=== PATIENT | female | born 1955 | race Caucasian/White ===

== ENCOUNTER 2024-05-10 21:45 | Inpatient (IN) | payer MEDICARE ==
--- NOTE | 2024-05-10 22:00 | ED ---
General Adult HPI - General Chief complaint: Shortness of Breath Stated complaint: Difficulty Breathing Time Seen by Provider: 05/10/24 21:59 Source: patient, EMS Mode of arrival: EMS Limitations: no limitations - History of Present Illness Initial comments: This is a pleasant 68-year-old female history of COPD not on home oxygen presenting today for shortness of breath. Presenting for the [facility] where she is currently living due to rehab for low back pain. States her last 2 days has had frequent nonproductive cough. Throughout the day today was continuously short of breath and has been using her nebulizer and breathing and albuterol inhaler much more frequently w/o relief. Denies chest pain, fevers, chills, nausea,vomiting, diarrhea, melena, hematochezia, hemoptysis, LE swelling or additional complaints. No recent steroid or antibiotics use. Does not normally wear oxygen. - Related Data Home Medications Medication Instructions Recorded Confirmed Acetaminophen [Tylenol] 650 mg PO Q6H PRN 05/11/24 05/11/24 Albuterol Sulfate [Albuterol 2 puff PO RT-Q6H PRN 05/11/24 05/11/24 Sulfate Hfa] Calcium Carbonate [Tums] 1,000 mg PO Q6H PRN 05/11/24 05/11/24 Cholecalciferol (Vitamin D3) 50 mcg PO DAILY 05/11/24 05/11/24 [Vitamin D3 (50 Mcg = 2000 Iu)] Citalopram Hydrobromide [CeleXA] 40 mg PO DAILY 05/11/24 05/11/24 Ipratropium-Albuterol Nebulize 3 ml INHALATION RT-Q4H 05/11/24 05/11/24 [Duoneb 0.5 mg-3 mg/3 ml Soln] Sennosides/Docusate Sodium [Senna 2 tab PO HS 05/11/24 05/11/24 Plus 8.6-50 mg Tablet] lisinopriL [Zestril] 20 mg PO DAILY 05/11/24 05/11/24 polyethylene glycoL 3350 [Miralax] 17 gm PO DAILY 05/11/24 05/11/24 Previous Rx's Medication Instructions Recorded Apixaban [Eliquis] 5 mg PO BID tab 05/12/24 Azithromycin [Zithromax] 500 mg PO DAILY #3 tab 05/12/24 Diltiazem Oral [Cardizem*] 30 mg PO TID tab 05/12/24 Ipratropium-Albuterol Nebulize 3 ml INHALATION TID each 05/12/24 [Duoneb 0.5 mg-3 mg/3 ml Soln] oxyCODONE HCL [oxyCODONE HCL (IR)] 10 mg PO Q4H #18 tab 05/12/24 predniSONE 10 mg PO DAILY #30 tab 05/12/24 Allergies Allergy/AdvReac Type Severity Reaction Status Date / Time No Known Allergies Allergy Verified 05/11/24 08:05 Review of Systems ROS Statement: Those systems with pertinent positive or pertinent negative responses have been documented in the HPI. ROS Other: All systems not noted in ROS Statement are negative. Past Medical History Past Medical History: COPD, Hypertension History of Any Multi-Drug Resistant Organisms: None Reported Past Surgical History: Section, Hernia Repair Past Psychological History: Anxiety Smoking Status: Former smoker Past Alcohol Use History: Daily Past Drug Use History: None Reported General Exam - General Exam Comments Initial Comments: PE: CONSTITUTIONAL: No apparent distress, chronically ill-appearing SKIN: Warm, dry, no jaundice, hives or petechiae EYES: Pupils are equally round, extraocular movements intact without nystagmus, clear conjunctiva, non-icteric sclera HENT: Normocephalic, atraumatic, moist mucus membranes, oropharynx clear without exudates NECK: , Full range of motion, normal appearance PULMONARY: Wheezes throughout all lung gilman with decreased air movement in the periphery, no rales, rhonchi, stridor, no accessory muscle use, normal excursion CARDIOVASCULAR: Regular rate, rhythm, normal S1 and S2. No appreciated murmurs, rubs or gallops. Strong radial pulses with intact distal perfusion. No lower extremity edema GASTROINTESTINAL: Soft, active bowel sounds throughout, non-tender, non- distended, no palpable masses, no rebound or guarding. No hepatosplenomegaly MUSCULOSKELETAL: Extremities have no gross deformity, no edema, redness, or swelling. No calf swelling NEUROLOGIC:_a/o x 3, GCS 15, normal mentation and speech. Moves all extremities x 4 without motor or sensory deficit PSYCHIATRIC:_normal mood and affect, thought process is clear and linear Limitations: no limitations Course Vital Signs 05/10/24 05/10/24 05/10/24 21:52 23:45 23:59 Temperature 98.5 F Pulse Rate 102 H 112 H 111 H Respiratory 18 22 22 Rate Blood Pressure 114/71 O2 Sat by Pulse 94 L Oximetry Fraction of Inspired Oxygen (FIO2) 05/11/24 05/11/24 05/11/24 00:05 01:39 01:49 Temperature Pulse Rate 114 H Respiratory 22 Rate Blood Pressure O2 Sat by Pulse Oximetry Fraction of 100 40 Inspired Oxygen (FIO2) 05/11/24 05/11/24 05/11/24 02:06 02:07 02:09 Temperature Pulse Rate 150 H 110 H 105 H Respiratory 22 28 H Rate Blood Pressure 92/44 O2 Sat by Pulse 98 Oximetry Fraction of Inspired Oxygen (FIO2) 05/11/24 05/11/24 05/11/24 02:11 02:16 02:17 Temperature Pulse Rate 103 H 112 H 113 H Respiratory 20 30 H 29 H Rate Blood Pressure 134/85 O2 Sat by Pulse 100 Oximetry Fraction of Inspired Oxygen (FIO2) 05/11/24 05/11/24 05/11/24 02:41 02:43 02:50 Temperature Pulse Rate 112 H 112 H 117 H Respiratory 20 24 32 H Rate Blood Pressure 146/96 146/96 O2 Sat by Pulse 99 97 Oximetry Fraction of Inspired Oxygen (FIO2) 05/11/24 05/11/24 05/11/24 03:40 04:00 04:31 Temperature 98.2 F Pulse Rate 117 H Respiratory 24 Rate Blood Pressure 129/78 O2 Sat by Pulse 98 Oximetry Fraction of 40 Inspired Oxygen (FIO2) 05/11/24 05/11/24 05/11/24 04:57 06:45 07:34 Temperature Pulse Rate 101 H 90 96 Respiratory 22 18 Rate Blood Pressure 115/81 121/77 O2 Sat by Pulse 98 98 Oximetry Fraction of 40 Inspired Oxygen (FIO2) 05/11/24 05/11/24 05/11/24 07:44 07:52 08:01 Temperature Pulse Rate 97 95 93 Respiratory Rate Blood Pressure O2 Sat by Pulse Oximetry Fraction of Inspired Oxygen (FIO2) 05/11/24 05/11/24 05/11/24 11:00 11:07 11:17 Temperature Pulse Rate 92 90 92 Respiratory 20 Rate Blood Pressure 125/75 O2 Sat by Pulse 98 Oximetry Fraction of 40 Inspired Oxygen (FIO2) 05/11/24 05/11/24 05/11/24 15:25 15:35 17:00 Temperature Pulse Rate 95 97 99 Respiratory Rate Blood Pressure O2 Sat by Pulse Oximetry Fraction of Inspired Oxygen (FIO2) 05/11/24 05/11/24 05/11/24 17:08 17:26 19:43 Temperature 97.7 F Pulse Rate 100 91 94 Respiratory 16 20 Rate Blood Pressure 133/89 O2 Sat by Pulse 96 Oximetry Fraction of Inspired Oxygen (FIO2) 05/11/24 05/11/24 05/11/24 19:49 19:50 19:58 Temperature Pulse Rate 98 99 91 Respiratory 20 20 20 Rate Blood Pressure O2 Sat by Pulse Oximetry Fraction of Inspired Oxygen (FIO2) 05/11/24 05/12/24 05/12/24 20:47 00:01 00:07 Temperature 98.1 F Pulse Rate 95 98 99 Respiratory 20 18 18 Rate Blood Pressure 127/79 O2 Sat by Pulse 95 Oximetry Fraction of Inspired Oxygen (FIO2) 05/12/24 05/12/24 05/12/24 04:00 04:13 04:21 Temperature Pulse Rate 101 H 95 92 Respiratory 18 18 18 Rate Blood Pressure 129/85 O2 Sat by Pulse 92 L Oximetry Fraction of Inspired Oxygen (FIO2) 05/12/24 05/12/24 05/12/24 07:34 07:54 08:04 Temperature Pulse Rate 82 97 94 Respiratory 18 Rate Blood Pressure O2 Sat by Pulse 100 93 L Oximetry Fraction of Inspired Oxygen (FIO2) 05/12/24 05/12/24 05/12/24 08:05 08:14 09:12 Temperature 98 F Pulse Rate 94 92 97 Respiratory 17 Rate Blood Pressure 120/77 O2 Sat by Pulse 87 L Oximetry Fraction of Inspired Oxygen (FIO2) 05/12/24 05/12/24 05/12/24 11:37 11:50 11:51 Temperature 98.0 F Pulse Rate 102 H 96 Respiratory 20 22 Rate Blood Pressure 120/77 O2 Sat by Pulse 94 L Oximetry Fraction of Inspired Oxygen (FIO2) 05/12/24 05/12/24 05/12/24 15:41 15:53 15:57 Temperature Pulse Rate 101 H 98 105 H Respiratory 18 Rate Blood Pressure 135/91 O2 Sat by Pulse 94 L Oximetry Fraction of Inspired Oxygen (FIO2) 05/12/24 05/12/24 18:00 19:32 Temperature Pulse Rate 88 95 Respiratory 18 20 Rate Blood Pressure 132/92 148/87 O2 Sat by Pulse 96 95 Oximetry Fraction of Inspired Oxygen (FIO2) - Reevaluation(s) Reevaluation #1: I was called by around to bedside, patient now tachycardic with heart rate 180, appears to be in a flutter, increased work of breathing, scant wheezes with decreased breath sounds bilaterally. Patient will be put on BiPAP, another DuoNeb was ordered along with EKG. Respiratory called for 05/11/24 01:39 Reevaluation #2: After Cardizem bolus of 14 mg, Cardizem drip placed on BiPAP and breathing treatment patient's heart rate decreased down to 103 bpm. Patient does not have history of A-fib she is new onset A-fib so we will start heparin drip. 05/11/24 02:15 05/11/24 02:17 EKG Findings - EKG Comments: EKG Findings:: Sinus tachycardia, rate 101 bpm GA interval 137 ms QT/QTc 288/346 ms, normal axis, no ST elevations or depressions, no arrhythmia noSTEMI. Repeat EKG performed at 1:41 AM, shows a flutter with RVR, rate 183 bpm QT/QTc 237/333 ms, no ST elevations/depression, no STEMI. Repeat EKG performed at 3:28 AM, rate 112 bpm, sinus tachycardia, GA interval 131 ms QT/QTc 267/3 3 3 ms, normal axis, no ST elevations or depressions Medical Decision Making - Medical Decision Making Was pt. sent in by a medical professional or institution (, PA, TELEPHONE MESSENGER, urgent care, hospital, or fpc...) When possible be specific @[facility] Did you speak to anyone other than the patient for history (EMS, parent, family, police, friend...)? What history was obtained from this source @ -No Did you review nursing and triage notes (agree or disagree)? Why? @ -I reviewed nursing and triage notes Were old charts reviewed (outside hosp., previous admission, EMS record, old EKG, old radiological studies, urgent care reports/EKG's, fpc records)? Report findings @ -Medical records reviewed-no prior visits to our hospital or emergency department visible on medical record review Differential Diagnosis (chest pain, altered mental status, abdominal pain women, abdominal pain men, vaginal bleeding, weakness, fever, dyspnea, syncope, headache, dizziness, GI bleed, back pain, seizure, CVA, palpatations, mental h ealth, musculoskeletal)? @Differential Dyspnea: Coronary syndrome, arrhythmia, tamponade, asthma, COPD, pulmonary embolism, pneumonia, pneumothorax, pulmonary effusion, anaphylaxis, diabetic ketoacidosis, flailed chest, pulmonary contusion, diaphragmatic rupture, anemia, neuromuscular, this is not meant to be an all-inclusive list. EKG interpreted by me (3pts min.). @ -As above X-rays interpreted by me (1pt min.). @ -I personally reviewed chest x-ray, lungs do appear hyperinflated with flatte niki of the diaphragm consistent with COPD/emphysema, I see no gross consolidations, pleural effusions or cardiomegaly, radiologist reviewed chest x- ray noted no acute cardiopulmonary process, COPD changes and multilevel anterior wedge compression deformities of thoracic spine, probably chronic correlate with point tenderness. Patient states that she is currently at [facility] for back pain, I suspect secondary to this CT interpreted by me (1pt min.). @ -None done U/S interpreted by me (1pt. min.). @ -None done Did you discuss the management of the patient with other professionals (professionals i.e. , PA, TELEPHONE MESSENGER, lab, RT, psych nurse, social services analyst, field gauger, teacher, associate loan officer, case management specialist)? Give summary @ -No Was smoking cessation discussed for >3mins.? @ -No Was critical care preformed (if so, how long)? @Yes 45 minutes Were there social determinants of health that impacted care today? How? (Homelessness, low income, unemployed, alcoholism, drug addiction, transportation, low edu. Level, literacy, decrease access to med. care, halfway, rehab)? @ -No Was there de-escalation of care discussed even if they declined (Discuss DNR or withdrawal of care, Hospice)? @ -No What co-morbidities impacted this encounter? (DM, HTN, Smoking, COPD, CAD, Cancer, CVA, ARF, Chemo, Hep., AIDS, mental health diagnosis, sleep apnea, morbid obesity)? COPD Was patient admitted / discharged? Hospital course, mention meds given and route, prescriptions, significant lab abnormalities, going to OR and other pertinent info. @Admission-this is a pleasant 68-year-old female history of COPD, chronic back pain presenting today for shortness of breath and nonproductive cough x 2 days. Patient arrives on 2 L oxygen nasal cannula. During conversation with the patient she is removed from supplemental oxygen pulse ox went down to 87%. Patient placed back onto nasal cannula. Exam significant for scant wheezes in the bilateral lung gilman with decreased air movement in the periphery. She has no focal breath sounds, no lower extremity swelling, normal S1-S2 on cardiac exam. She is nontoxic-appearing and in no acute distress. I discussed with the patient performing nebulizer treatment, steroids, obtain chest x-ray EKG basic labs. Patient agreeable plan of care. On reassessment after [id number] nebulizer treatments, patient continued to have wheezes in the bilateral lung gilman with some improvement in air movement. Given lack of significant improvement of breath sounds plan for admission for COPD exacerbation.Otherwise labs reviewed, patient has no leukocytosis, troponin is undetectable, BNP 593, viral panel negative. Chest x-ray reflects COPD exacerbation without focal consolidations, cardiomegaly or pleural effusions. Case was discussed with ARPAN Sky, kindly excepted patient for admission. Shortly after admission while boarding in the emergency department I was called to bedside by RN that stated patient appeared to be in increased respiratory distress. On my assessment patient has heart rate of approximately 180 appears to be in atrial flutter, she has decreased air movement bilaterally with scant wheezes, tachypnea and is tripoding. Immediately ordered repeat EKG, repeat nebulizer treatments, BiPAP. Patient appears tearful and anxious, will order small dose of Ativan as well. EKG appeared to show atrial flutter versus A-fib RVR. Though I do suspect tachycardia secondary to work of breathing and could have a component of tachycardia secondary to DuoNebs, I feel patient would also benefit from Cardizem bolus. Blood pressure currently 88/72 with a MAP of 79. 14 mg Cardizem bolus and Cardizem drip ordered. Cardizem bolus was administered with improvement in heart rate down to the 110s, patient on BiPAP and appears much more comfortable. Due to new onset A-fib patient will be started on a heparin drip and maintain on a Cardizem drip as we ll. Patient's HR continued to improve, ~103 on reassessment. Appears comfortable on bipap. Admitted for COPD exacerbation. Undiagnosed new problem with uncertain prognosis? @ -No Drug Therapy requiring intensive monitoring for toxicity (Heparin, Nitro, Insulin, Cardizem)? @Heparin, Cardizem Were any procedures done? @ -No Diagnosis/symptom? acute hypoxic respiratory failure, COPD exacerbation, atrial fibrillation w/ RvR Acute, or Chronic, or Acute on Chronic? @ -acute Uncomplicated (without systemic symptoms) or Complicated (systemic symptoms)? @complicated Side effects of treatment? @ -No Exacerbation, Progression, or Severe Exacerbation? @ -No Poses a threat to life or bodily function? How? (Chest pain, [place], [place], pneumonia, PE, COPD, DKA, ARF, appy, cholecystitis, CVA, Diverticulitis, Homicidal, Suicidal, threat to staff... and all critical care pts) yes if left unaddressed could lead to respiratory arrest and - Lab Data Result diagrams: 05/10/24 23:27 05/10/24 23:27 Lab Results 05/10/24 05/10/24 05/10/24 Range/Units 23:27 23:27 23:27 WBC 7.2 (3.8-10.6) k/uL RBC 3.51 L (3.80-5.40) m/uL Hgb 11.9 (11.4-16.0) gm/dL Hct 38.5 (34.0-46.0) % MCV 109.7 H (80.0-100.0) fL MCH 33.8 (25.0-35.0) pg MCHC 30.8 L (31.0-37.0) g/dL RDW 13.3 (11.5-15.5) % Plt Count 563 H (150-450) k/uL MPV 7.2 Neutrophils % 75 % Lymphocytes % 12 % Monocytes % 6 % Eosinophils % 3 % Basophils % 1 % Neutrophils # 5.4 (1.3-7.7) k/uL Lymphocytes # 0.8 L (1.0-4.8) k/uL Monocytes # 0.4 (0-1.0) k/uL Eosinophils # 0.2 (0-0.7) k/uL Basophils # 0.1 (0-0.2) k/uL Manual Slide Review Performed Hypochromasia Moderate Macrocytosis Marked A PT 11.3 (10.0-12.5) sec INR 1.0 (<1.2) APTT 24.7 (22.0-30.0) sec D-Dimer 0.46 (<0.60) mg/L FEU Sodium 135 L (137-145) mmol/L Potassium 4.5 (3.5-5.1) mmol/L Chloride 100 (98-107) mmol/L Carbon Dioxide 24 (22-30) mmol/L Anion Gap 11 mmol/L BUN 12 (7-17) mg/dL Creatinine 0.42 L (0.52-1.04) mg/dL Est GFR (CKD-EPI)AfAm >90 (>60 ml/min/1.73 sqM) Est GFR (CKD-EPI)NonAf >90 (>60 ml/min/1.73 sqM) Glucose 101 H (74-99) mg/dL Calcium 9.2 (8.4-10.2) mg/dL Total Bilirubin 0.7 (0.2-1.3) mg/dL AST 18 (14-36) U/L ALT 19 (4-34) U/L Alkaline Phosphatase 108 (38-126) U/L Troponin I (0.000-0.034) ng/mL NT-Pro-B Natriuret Pep 593 pg/mL Total Protein 7.1 (6.3-8.2) g/dL Albumin 4.0 (3.5-5.0) g/dL 05/10/24 Range/Units 23:27 WBC (3.8-10.6) k/uL RBC (3.80-5.40) m/uL Hgb (11.4-16.0) gm/dL Hct (34.0-46.0) % MCV (80.0-100.0) fL MCH (25.0-35.0) pg MCHC (31.0-37.0) g/dL RDW (11.5-15.5) % Plt Count (150-450) k/uL MPV Neutrophils % % Lymphocytes % % Monocytes % % Eosinophils % % Basophils % % Neutrophils # (1.3-7.7) k/uL Lymphocytes # (1.0-4.8) k/uL Monocytes # (0-1.0) k/uL Eosinophils # (0-0.7) k/uL Basophils # (0-0.2) k/uL Manual Slide Review Hypochromasia Macrocytosis PT (10.0-12.5) sec INR (<1.2) APTT (22.0-30.0) sec D-Dimer (<0.60) mg/L FEU Sodium (137-145) mmol/L Potassium (3.5-5.1) mmol/L Chloride (98-107) mmol/L Carbon Dioxide (22-30) mmol/L Anion Gap mmol/L BUN (7-17) mg/dL Creatinine (0.52-1.04) mg/dL Est GFR (CKD-EPI)AfAm (>60 ml/min/1.73 sqM) Est GFR (CKD-EPI)NonAf (>60 ml/min/1.73 sqM) Glucose (74-99) mg/dL Calcium (8.4-10.2) mg/dL Total Bilirubin (0.2-1.3) mg/dL AST (14-36) U/L ALT (4-34) U/L Alkaline Phosphatase (38-126) U/L Troponin I <0.012 (0.000-0.034) ng/mL NT-Pro-B Natriuret Pep pg/mL Total Protein (6.3-8.2) g/dL Albumin (3.5-5.0) g/dL Disposition Clinical Impression: COPD exacerbation Disposition: ADMITTED IP TO THIS HOSP Condition: Stable
--- NOTE | 2024-05-10 23:03 | XR ---
EXAMINATION TYPE: XR chest 2V DATE OF EXAM: 05/10/2024 10:57 PM COMPARISON: None TECHNIQUE: XR chest 2V Frontal and lateral views of the chest. CLINICAL INDICATION:Female, 68 years old with history of COPD, ZAY; FINDINGS: Lungs/Pleura: There is flattening of the diaphragm with increased lucency of the lungs. No evidence o f pneumothorax, pleural effusion or focal consolidation. Senescent parenchymal change. Pulmonary vascularity: Unremarkable. Heart/mediastinum: Cardiomediastinal silhouette is prominent in size. Musculoskeletal: Multilevel anterior wedge compression deformities of the thoracic spine. IMPRESSION: 1. No acute cardiopulmonary disease process. 2. COPD changes. 3. Multilevel anterior wedge compression deformities of the thoracic spine. Probably chronic. Correla te with point tenderness. [facility], , 05/10/2024 11:01 PM
[2024-05-10 23:37] LABS: Basophils # (A) 0.1 k/uL (0-0.2); Basophils % (A) 1 %; Eosinophils # (A) 0.2 k/uL (0-0.7); Eosinophils % (A) 3 %; HCT 38.5 % (34.0-46.0); HGB 11.9 gm/dL (11.4-16.0); Hypochromasia Moderate; Lymphocytes # (A) 0.8 k/uL (1.0-4.8); Lymphocytes % (A) 12 %; MCH 33.8 pg (25.0-35.0); MCHC 30.8 g/dL (31.0-37.0); MCV 109.7 fL (80.0-100.0); Macrocytosis Marked; Mean Platelet Volume 7.2; Monocytes # (A) 0.4 k/uL (0-1.0); Monocytes % (A) 6 %; Neutrophils # (A) 5.4 k/uL (1.3-7.7); Neutrophils % (A) 75 %; Platelet Count 563 k/uL (150-450); RBC 3.51 m/uL (3.80-5.40); RDW 13.3 % (11.5-15.5); WBC 7.2 k/uL (3.8-10.6)
[2024-05-10 23:46] LABS: ALT 19 U/L (4-34); AST 18 U/L (14-36); African American GFR (CKD) >90 (>60 ml/min/1.73 sqM); Alkaline Phosphatase 108 U/L (38-126); Anion Gap 11 mmol/L; Blood Urea Nitrogen 12 mg/dL (7-17); Calcium 9.2 mg/dL (8.4-10.2); Carbon Dioxide 24 mmol/L (22-30); Chloride 100 mmol/L (98-107); Glucose 101 mg/dL (74-99); Non-African American GFR(CKD) >90 (>60 ml/min/1.73 sqM); Potassium 4.5 mmol/L (3.5-5.1); Sodium 135 mmol/L (137-145); Total Bilirubin 0.7 mg/dL (0.2-1.3); Total Protein 7.1 g/dL (6.3-8.2)
[2024-05-10] MEDS: IPRATROPIUM 0.5 MG/2.5 ML NEBU INHALATION STA ×2 (23:49)
[2024-05-10] MEDS: methylPREDNISolone SOD SUCCI 125 MG/2 ML VIAL IV STA (23:49)
[2024-05-10] MEDS: ALBUTEROL NEBULIZED 2.5 MG/3 ML INHALATION SCH (23:49)
[2024-05-10 23:51] LABS: Partial Thromboplastin Time 24.7 sec (22.0-30.0); Prothrombin Time 11.3 sec (10.0-12.5)
[2024-05-10 23:54] LABS: NT-Pro-B-Type Natriuretic Pept 593 pg/mL
[2024-05-11] MEDS ORDERED: ONDANSETRON 4 MG/2 ML VIAL IVP PRN (00:55)
[2024-05-11] MEDS ORDERED: NALOXONE 0.4 MG/ML 1 ML VIAL IVP PRN (00:55)
[2024-05-11] MEDS: LACTATED RINGERS 1,000 ML IV ONE (00:56)
[2024-05-11] MEDS: IPRATROPIUM 0.5 MG/2.5 ML NEBU INHALATION STA (01:52)
[2024-05-11] MEDS: ALBUTEROL NEBULIZED 2.5 MG/3 ML INHALATION STA (01:52)
[2024-05-11] MEDS: LORazepam 2 MG/ML INJ IV STA (01:55)
[2024-05-11] MEDS: SODIUM CHLORIDE 0.9% 1,000 ML IV ONE (01:56)
[2024-05-11] MEDS: DILTIAZEM 5 MG/ML 5 ML VIAL IVP STA (01:56)
[2024-05-11] MEDS ORDERED: DILTIAZEM 125 MG in SODIUM CHLORIDE 0.9% 100 ML IV SCH (02:00)
[2024-05-11] MEDS ORDERED: HEPARIN SODIUM 1,000 UN/ML (10ML VL) IV PRN (02:16)
[2024-05-11] MEDS: DILTIAZEM 125 MG in SODIUM CHLORIDE 0.9% 100 ML IV SCH (02:19)
[2024-05-11] MEDS: AZITHROMYCIN 500 MG in SODIUM CHLORIDE 0.9% 250 ML IVPB STA (02:22)
[2024-05-11 02:29] LABS: Influenza A Not Detected (Not Detectd); Influenza B Not Detected (Not Detectd); RSV Not Detected (Not Detectd)
[2024-05-11] MEDS: DILTIAZEM DRIP BOLUS FROM BAG 1 MG SOLN IV STA (02:30)
[2024-05-11] MEDS: HEPARIN SOD,PORK IN 0.45% NACL 25,000 UNIT in 0.45% NACL 1 250ML.BAG IV SCH (02:45)
[2024-05-11] MEDS: HEPARIN SODIUM 1,000 UN/ML (10ML VL) IV ONE (02:48)
--- NOTE | 2024-05-11 03:27 | P.CNPUL ---
History of Present Illness Consult date: 05/11/24 Requesting physician: Savanna Angelo Reason for consult: COPD Chief complaint: Shortness of breath History of present illness: Patient is 68-year-old female brought in by EMS from her [facility] with difficulty in breathing. On arrival, was found to be in some respiratory and placed on BiPAP. Pulmonary consult was placed for COPD exacerbation. While in the emergency department reportedly went into atrial fibrillation with rapid ventricular response, rate as high as 180s beats per minute. She was started on IV Cardizem. She was also systemically heparinized. Patient reportedly has history of COPD, home O2 dependence, former tobacco dependence, hypertension, wedge compression fracture of L2 with brace, anxiety/depression. Chest x-ray does not show any acute cardiopulmonary process. There is hyperinflation consistent with COPD. Viral screen negative for influenza, RSV, COVID. CBC: WBC count 7.2, hemoglobin 11.9, platelets 563. D-dimer 0.46. CMP unremarkable, electrolytes WDL, creatinine 0.42, glucose 101. D-dimer 0.46. Troponins less than 0.012. NT proBNP 593. Patient currently being evaluated the emergency department. She is in a state of respiratory distress, on BiPAP with settings 12/5 and FiO2 40%. SpO2 is reading 99%. Breathing in the mid 30s. Achieving tidal volumes around 300. She appears anxious, did receive a dose of Ativan 0.5 mg earlier. Her COPD is active she is actively wheezing. Per staff nurse, patient reportedly having hallucinations earlier. Interview is limited by respiratory distress. She does endorse a mostly nonproductive cough. Denies significant purulent sputum production. Denies fevers or chills. Denies chest pain, heart palpi tations, lightheadedness, lower extremity edema. Denies history of atrial fibrillation. Current rhythm appears to be sinus tachycardia on bedside monitor. Continues on Cardizem which is infusing at 5 mg/h, and heparin continues per protocol. Blood pressure normotensive. Review of Systems Constitutional: Denies chills (Speech), Denies fatigue, Denies fever, Denies poor appetite, Denies weight gain, Denies weight loss Ears, nose, mouth and throat: Denies headache, Denies nasal congestion, Denies nasal discharge, Denies post-nasal drip, Denies sinus pain, Denies sinus pressure, Denies sore throat Cardiovascular: Denies chest pain, Denies lightheadedness, Denies orthopnea, Denies palpitations, Denies paroxysmal nocturnal dyspnea, Denies syncope Respiratory: Reports congestion, Reports cough, Reports dyspnea, Reports home oxygen, Reports wheezing, Denies excessive sputum Gastrointestinal: Denies abdominal pain, Denies diarrhea, Denies hematemesis, Denies hematochezia, Denies melena, Denies nausea, Denies vomiting Genitourinary: Denies dysuria Musculoskeletal: Reports low back pain Integumentary: Denies rash, Denies unusual bruising Neurological: Denies seizures, Denies syncope Psychiatric: Denies anxiety, Denies depression Past Medical History Past Medical History: COPD, Hypertension History of Any Multi-Drug Resistant Organisms: None Reported Past Surgical History: Section, Hernia Repair Past Psychological History: Anxiety Smoking Status: Former smoker Past Alcohol Use History: Daily Past Drug Use History: None Reported Medications and Allergies Home Medications Medication Instructions Recorded Confirmed Type Acetaminophen [Tylenol] 650 mg PO Q6H PRN 05/11/24 05/11/24 History Albuterol Sulfate [Albuterol 2 puff PO RT-Q6H PRN 05/11/24 05/11/24 History Sulfate Hfa] Calcium Carbonate [Tums] 1,000 mg PO Q6H PRN 05/11/24 05/11/24 History Cholecalciferol (Vitamin D3) 50 mcg PO DAILY 05/11/24 05/11/24 History [Vitamin D3 (50 Mcg = 2000 Iu)] Citalopram Hydrobromide [CeleXA] 40 mg PO DAILY 05/11/24 05/11/24 History Docusate Sodium 100 mg PO BID 05/11/24 05/11/24 History Ipratropium-Albuterol Nebulize 3 ml INHALATION RT-Q4H 05/11/24 05/11/24 History [Duoneb 0.5 mg-3 mg/3 ml Soln] Meclizine HCl 50 mg PO Q8H PRN 05/11/24 05/11/24 History Meclizine [Antivert] 12.5 mg PO TID 05/11/24 05/11/24 History Sennosides/Docusate Sodium [Senna 2 tab PO HS 05/11/24 05/11/24 History Plus 8.6-50 mg Tablet] lisinopriL [Zestril] 20 mg PO DAILY 05/11/24 05/11/24 History oxyCODONE HCL [oxyCODONE HCL (IR)] 10 mg PO Q4H 05/11/24 05/11/24 History polyethylene glycoL 3350 [Miralax] 17 gm PO DAILY 05/11/24 05/11/24 History Allergies Allergy/AdvReac Type Severity Reaction Status Date / Time No Known Allergies Allergy Verified 05/11/24 08:05 Physical Exam Vitals: Vital Signs Temp Pulse Resp BP Pulse Ox FiO2 05/11/24 01:49 40 05/11/24 01:39 100 05/11/24 00:05 114 H 22 05/10/24 23:59 111 H 22 05/10/24 23:45 112 H 22 05/10/24 21:52 98.5 F 102 H 18 114/71 94 L Intake and Output 05/10/24 05/10/24 05/11/24 14:59 22:59 06:59 Other: Weight 55.338 kg GENERAL EXAM: Anxious, 68-year-old white female, in a state of moderate respiratory distress while on BiPAP. Lumbar brace on bedside table HEAD: Normocephalic and atraumatic EYES: Normal reaction of pupils, equal size. NOSE: Clear with pink turbinates. THROAT: No erythema or exudates. NECK: No masses, no JVD. CHEST: No chest wall deformity. LUNGS: Equal air entry with diffuse expiratory wheezing throughout. On BiPAP with settings 12/5 and FiO2 40%. Achieving tidal volumes around 300 to 350 mL. Tachypneic breathing in the mid 30s. Conversational dyspnea and accessory muscle use noted CVS: S1 and S2 normal with no audible murmur, regular rhythm. No extra heart sounds. Tachycardic. ABDOMEN: No hepatosplenomegaly, active bowel sounds, no guarding or rigidity. SPINE: No scoliosis or deformity SKIN: No rashes CENTRAL NERVOUS SYSTEM: No focal deficits, tone is normal in all 4 extremities. EXTREMITIES: There is no peripheral edema, clubbing, or cyanosis. Peripheral pulses are intact. Results - Laboratory Findings CBC and BMP: 05/10/24 23:27 05/10/24 23:27 PT/INR, D-dimer PT 11.3 sec (10.0-12.5) 05/10/24 23:27 INR 1.0 (<1.2) 05/10/24 23:27 D-Dimer 0.46 mg/L FEU (<0.60) 05/10/24 23:27 Abnormal lab findings: Abnormal Labs 05/10/24 05/10/24 23:27 23:27 RBC 3.51 L MCV 109.7 H MCHC 30.8 L Plt Count 563 H Lymphocytes # 0.8 L Macrocytosis Marked A Sodium 135 L Creatinine 0.42 L Glucose 101 H - Diagnostic Findings Chest x-ray: image reviewed Assessment and Plan Assessment: Acute COPD exacerbation with secondary shortness of breath and the patient is currently on BiPAP. Chest x-ray was reviewed and is consistent with COPD and chronic scarring changes. No airspace disease. Acute on chronic hypoxemic respiratory failure, currently on BiPAP, secondary to above paroxysmal atrial fibrillation with RVR, started on IV Cardizem and IV heparin in the ED, currently appears sinus tachycardia on bedside monitor Hypertension Lower back pain, with history of wedge compression fracture of L2 vertebra, with a lumbar brace Anxiety/depression Former tobacco smoker Plan: Continue on BiPAP with current settings, wean FiO2 as tolerated Chest x-ray reviewed, there is hyperinflation consistent with COPD. No acute cardiopulmonary process noted. Reportedly previously noted to be confused and having hallucinations. Obtain ABG Start combination of DuoNebs, budesonide and formoterol inhalations, and IV Solu-Medrol Viral 4 Plex unremarkable for influenza, RSV, COVID Received empiric doses of azithromycin and Rocephin in the ED As needed Xanax for anxiety Continues on IV Cardizem at 5 mg/h and IV heparin per protocol. Appears sinus on bedside monitor. Repeat EKG, consult cardiology We will also continue to follow I have personally seen and examined the patient, performed the documentation and the assessment and plan as written. Number of minutes spent on the visit:20 On 05/11/2024, the patient was seen in joint evaluation along with the nurse practitioner. This evaluation was done and 35 minutes. The patient is 68-year-old female who has history of COPD and she has not had any routine follow-up with pulmonology. She is a chronic former smoker. Upon arrival, the patient was in significant respiratory distress and based on that the patient was placed on a BiPAP with a pressure of 12 over 5 cm of water and FiO2 40%. She is still on BiPAP. At the same time, the patient was found to be in A-fib with RVR and significant tachycardia. She was started on a Cardizem drip and IV heparin. Overall, the patient is feeling better. She remains on DuoNeb. She remains on Perforomist and Pulmicort nebulizations twice a day and IV Solu- Medrol 40 mg every 8 hours. The patient is covered with empiric antibiotic coverage with Zithromax. She was taken off the Cardizem drip and the patient is currently on oral Cardizem at 30 mg p.o. 3 times daily. The patient remains on anticoagulation with Eliquis. Patient is also to be seen by cardiology. Chest x-ray was reviewed and is consistent with COPD and the patient has multiple anterior wedge compression deformities in the thoracic spine. She has ongoing chronic back pain related to compression fraction of the spine. She is taking oxycodone regarding pain milligrams every 4 hours on a as needed basis. Blood work was reviewed. The blood gas showed a pH of 7.37 with a pCO2 of 43 and pO2 of 84. Electrolytes are all within normal limits. The viral screen has been negative. proBNP level is 593 and the troponins are also negative. The patient will be admitted to the hospital accordingly and will follow. Time with Patient: Greater than 30
[2024-05-11] MEDS: ALPRAZolam 0.25 MG TAB PO PRN (03:39)
[2024-05-11 03:41] LABS: ABG Base Excess -0.9 mmol/L; ABG HCO3 25 mmol/L (21-25); ABG Oxygen Saturation 96.4 % (94-97); ABG PCO2 43 mmHg (35-45); ABG PH 7.37 (7.35-7.45); ABG PO2 84 mmHg (83-108); ABG TCO2 26 mmol/L (19-24); Allen Test Performed? Yes
[2024-05-11] MEDS: methylPREDNISolone SOD SUCCI 125 MG/2 ML VIAL IV SCH (05:30)
[2024-05-11] MEDS: IPRATROPIUM-ALBUTEROL 3 ML NEB INHALATION SCH ×2 (07:31→11:05)
[2024-05-11] MEDS: BUDESONIDE 1 MG/2 ML NEBU INHALATION SCH (07:31)
[2024-05-11] MEDS: FORMOTEROL FUMARATE 20 MCG/2 ML NEBU INHALATION SCH (07:52)
[2024-05-11] MEDS ORDERED: predniSONE 20 MG TAB PO SCH (09:00)
[2024-05-11] MEDS: AZITHROMYCIN 500 MG TAB PO SCH (09:09)
[2024-05-11] MEDS: APIXABAN 5 MG TAB PO SCH (09:10)
[2024-05-11] MEDS: guaiFENesin 600 MG TABLET.ER PO SCH (09:10)
[2024-05-11] MEDS: DILTIAZEM ORAL 30 MG TAB PO SCH (09:10)
[2024-05-11] MEDS: lisinopriL 20 MG TAB PO SCH (10:40)
[2024-05-11] MEDS: polyethylene glycoL 3350 17 GM POWD.PACK PO SCH (10:42)
--- NOTE | 2024-05-11 12:12 | P.CRDCN ---
History of Present Illness Consult date: 05/11/24 Reason for Consult (text): New A-fib History of present illness: This is a 68-year-old female with no prepatient presented to the hospital due to difficulty in breathing. Vious cardiac history and does not follow with a cell efficiency supervisor. She has a past medical history of COPD, hypertension, remote history of tobacco use and dependence.Patient states that she has also had a sore back and has been at subacute rehab for this. She is not on home oxygen and denies history of obstructive sleep apnea. She denies history of atrial fibrillation or irregular heartbeat. She does state that she was at [facility] few weeks ago and may have seen a cell efficiency supervisor at that time. Patient has a nonproductive cough. Patient denies having chest pain, no fever or chills. Blood pressure 125/75, heart rate 92, pulse ox 98% on BiPAP. Patient has been started on Cardizem drip currently at 5 mg/h and heparin drip. Patient is seen today in the emergency center waiting for a bed on the cardiac stepdown unit. -EKG: #1 sinus rhythm 101 bpm, #2 atrial fibrillation 183 bpm, #3 sinus rhythm 112 bpm. -Chest x-ray: No acute process. COPD. Multilevel anterior wedge compression deformities of the thoracic spine. -Laboratory studies: WBC 7.2, hemoglobin 1.9, platelet count 563, D-dimer 0.46. BUN 0.42. Troponin negative x 1. proBNP 593. Cepheid viral panel not detected. -Home cardiac medications: Lisinopril 20 mg daily. Review Of Systems: At the time of my exam: CONSTITUTIONAL: Denies fever or chills. HEENT: Denies blurred vision, vision changes, or eye pain. Denies hemoptysis CARDIOVASCULAR: Denies chest pain. Denies orthopnea. Denies PND. Denies palpitations RESPIRATORY: Reports cough, reports shortness of breath. GASTROINTESTINAL: Denies abdominal pain. Denies nausea or vomiting. HEMATOLOGIC: Denies bleeding disorders. GENITOURINARY: Denies any blood in urine. SKIN: Denies puritis. Denies rash. Physical examination: Gen: This is a frail cachectic appearing 68-year-old female currently on BiPAP VS: reviewed HEENT: Head is atraumatic, normocephalic. Pupils equal, round. Sclerae is anicteric. NECK: Supple. No JVD. LUNGS: Diminished breath sounds. No intercostal retractions. HEART: Regular rate and rhythm. No murmur. ABDOMEN: Soft No tenderness. EXTREMITIES: No pedal edema. No calf tenderness. NEUROLOGICAL: Patient is awake, alert and oriented x3. Assessment: New onset paroxysmal atrial fibrillation with RVR, currently in sinus rhythm COPD exacerbation Acute hypoxic respiratory failure on BiPAP Hypertension Back pain with compression deformity of L2 Remote history of tobacco use and dependence Plan: Resume patient's home cardiac medications Discontinue heparin drip and start patient on Eliquis 5 mg twice daily Discontinue Cardizem drip and start patient on oral Cardizem 30 mg 3 times daily Obtain 2-D echocardiogram and Doppler study to assess cardiac structure and function Further recommendations to follow based upon clinical course Thank you kindly for this consultation. Nurse practitioner note has been reviewed, I agree with documented findings and plan of care. Patient was seen and examined. Past Medical History Past Medical History: COPD, Hypertension History of Any Multi-Drug Resistant Organisms: None Reported Past Surgical History: Section, Hernia Repair Past Psychological History: Anxiety Smoking Status: Former smoker Past Alcohol Use History: Daily Past Drug Use History: None Reported Medications and Allergies Home Medications Medication Instructions Recorded Confirmed Type Acetaminophen [Tylenol] 650 mg PO Q6H PRN 05/11/24 05/11/24 History Albuterol Sulfate [Albuterol 2 puff PO RT-Q6H PRN 05/11/24 05/11/24 History Sulfate Hfa] Calcium Carbonate [Tums] 1,000 mg PO Q6H PRN 05/11/24 05/11/24 History Cholecalciferol (Vitamin D3) 50 mcg PO DAILY 05/11/24 05/11/24 History [Vitamin D3 (50 Mcg = 2000 Iu)] Citalopram Hydrobromide [CeleXA] 40 mg PO DAILY 05/11/24 05/11/24 History Docusate Sodium 100 mg PO BID 05/11/24 05/11/24 History Ipratropium-Albuterol Nebulize 3 ml INHALATION RT-Q4H 05/11/24 05/11/24 History [Duoneb 0.5 mg-3 mg/3 ml Soln] Meclizine HCl 50 mg PO Q8H PRN 05/11/24 05/11/24 History Meclizine [Antivert] 12.5 mg PO TID 05/11/24 05/11/24 History Sennosides/Docusate Sodium [Senna 2 tab PO HS 05/11/24 05/11/24 History Plus 8.6-50 mg Tablet] lisinopriL [Zestril] 20 mg PO DAILY 05/11/24 05/11/24 History oxyCODONE HCL [oxyCODONE HCL (IR)] 10 mg PO Q4H 05/11/24 05/11/24 History polyethylene glycoL 3350 [Miralax] 17 gm PO DAILY 05/11/24 05/11/24 History Allergies Allergy/AdvReac Type Severity Reaction Status Date / Time No Known Allergies Allergy Verified 05/11/24 08:05 Physical Exam Vitals: Vital Signs Temp Pulse Resp BP Pulse Ox FiO2 05/11/24 07:44 97 05/11/24 07:34 96 40 05/11/24 06:45 90 18 121/77 98 05/11/24 04:57 101 H 22 115/81 98 05/11/24 04:31 40 05/11/24 04:00 98.2 F 05/11/24 03:40 117 H 24 129/78 98 05/11/24 02:50 117 H 32 H 146/96 97 05/11/24 02:43 112 H 24 05/11/24 02:41 112 H 20 146/96 99 05/11/24 02:17 113 H 29 H 05/11/24 02:16 112 H 30 H 05/11/24 02:11 103 H 20 134/85 100 05/11/24 02:09 105 H 28 H 05/11/24 02:07 110 H 05/11/24 02:06 150 H 22 92/44 98 05/11/24 01:49 40 05/11/24 01:39 100 05/11/24 00:05 114 H 22 05/10/24 23:59 111 H 22 05/10/24 23:45 112 H 22 05/10/24 21:52 98.5 F 102 H 18 114/71 94 L Intake and Output 05/10/24 05/11/24 05/11/24 22:59 06:59 14:59 Other: Weight 55.338 kg Results 05/10/24 23:27 05/10/24 23:27 Cardiac Enzymes 05/10/24 05/10/24 Range/Units 23:27 23:27 AST 18 (14-36) U/L Troponin I <0.012 (0.000-0.034) ng/mL Coagulation 05/10/24 Range/Units 23:27 PT 11.3 (10.0-12.5) sec APTT 24.7 (22.0-30.0) sec CBC 05/10/24 Range/Units 23:27 WBC 7.2 (3.8-10.6) k/uL RBC 3.51 L (3.80-5.40) m/uL Hgb 11.9 (11.4-16.0) gm/dL Hct 38.5 (34.0-46.0) % Plt Count 563 H (150-450) k/uL Comprehensive Metabolic Panel 05/10/24 Range/Units 23:27 Sodium 135 L (137-145) mmol/L Potassium 4.5 (3.5-5.1) mmol/L Chloride 100 (98-107) mmol/L Carbon Dioxide 24 (22-30) mmol/L BUN 12 (7-17) mg/dL Creatinine 0.42 L (0.52-1.04) mg/dL Glucose 101 H (74-99) mg/dL Calcium 9.2 (8.4-10.2) mg/dL AST 18 (14-36) U/L ALT 19 (4-34) U/L Alkaline Phosphatase 108 (38-126) U/L Total Protein 7.1 (6.3-8.2) g/dL Albumin 4.0 (3.5-5.0) g/dL Current Medications Generic Name Dose Route Start Last Admin Trade Name Freq PRN Reason Stop Dose Admin Acetaminophen 650 mg 05/11/24 00:55 Acetaminophen Tab 325 Mg Tab PO Q6HR PRN Mild Pain or Fever > 100.5 Albuterol/Ipratropium 3 ml 05/11/24 08:00 05/11/24 07:31 Ipratropium-Albuterol 3 Ml Neb INHALATION 3 ml RT-QID MICHELLE Administration Albuterol/Ipratropium 3 ml 05/11/24 00:55 Ipratropium-Albuterol 3 Ml Neb INHALATION RT-Q2H PRN Shortness Of Breath Or Wheezing Alprazolam 0.25 mg 05/11/24 03:14 05/11/24 03:39 Alprazolam 0.25 Mg Tab PO 0.25 mg BID PRN Administration Anxiety Azithromycin 500 mg 05/11/24 09:00 Azithromycin 500 Mg Tab PO 05/13/24 09:01 DAILY [facility] Protocol Budesonide 1 mg 05/11/24 08:00 05/11/24 07:31 Budesonide 1 Mg/2 Ml Nebu INHALATION 1 mg RT-BID MICHELLE Administration Formoterol Fumarate 20 mcg 05/11/24 08:00 Formoterol Fumarate 20 Mcg/2 Ml Nebu INHALATION RT-BID MICHELLE Guaifenesin 600 mg 05/11/24 09:00 Guaifenesin 600 Mg Tablet.Er PO Q12HR [facility] Heparin Sodium (Porcine) 0 unit 05/11/24 02:16 Heparin Sodium 1,000 Un/Ml (10ml Vl) IV PER PROTOCOL PRN Low PTT Protocol Heparin Sodium/Sodium Chloride 250 mls @ 6.641 mls/hr 05/11/24 02:30 05/11/24 02:45 25,000 unit/ Sodium Chloride IV 12 units/kg/hr .Q24H MICHELLE 6.641 mls/hr Administration Protocol 12 UNITS/KG/HR Diltiazem HCl 125 mg/ Sodium 125 mls @ 5 mls/hr 05/11/24 02:30 05/11/24 02:19 Chloride IV 5 mg/hr .Q24H MICHELLE 5 mls/hr Administration Protocol 5 MG/HR Methylprednisolone Sodium Succinate 60 mg 05/11/24 06:00 05/11/24 05:30 Methylprednisolone Sod Succi 125 Mg/2 Ml Vial IV 60 mg Q6HR MICHELLE Administration Naloxone HCl 0.2 mg 05/11/24 00:55 Naloxone 0.4 Mg/Ml 1 Ml Vial IVP Q2M PRN Opioid Reversal Ondansetron HCl 4 mg 05/11/24 00:55 Ondansetron 4 Mg/2 Ml Vial IVP Q6HR PRN Nausea And Vomiting Intake and Output 05/10/24 05/11/24 05/11/24 22:59 06:59 14:59 Other: Weight 55.338 kg 05/10/24 23:27 05/10/24 23:27
[2024-05-11] MEDS: IPRATROPIUM-ALBUTEROL 3 ML NEB INHALATION PRN (16:57)
--- NOTE | 2024-05-11 20:41 | P.HPIM ---
History of Present Illness H&P Date: 05/11/24 Chief Complaint: Short of breath Pleasant 68-year-old patient, follows with Dr. Joya Cramer. Patient [facility] had [facility]. For that she was admitted to [facility] for rehab. While at [facility] she was seen by orthopedic surg michael for her back pain. She was told no surgical intervention at this point. And medical management and follow-up outpatient. As the back was bothering her more she decided to come to the ER. Also short of breath and more wheezing. Found to be in atrial fibrillation with rapid ventricular rate. Put on a Cardizem drip. Patient did smoke in the past. By this morning patient reverted to sinus rhythm. Review of systems: GEN.: Tired EYES: None HEENT: None NECK: None RESPIRATORY: Short of breath wheezing CARDIOVASCULAR: None GASTROINTESTINAL: None GENITOURINARY: None MUSCULOSKELETAL: [Chronic pain including flareup of lower back pain LYMPHATICS: None HEMATOLOGICAL: None PSYCHIATRY: None NEUROLOGICAL: Does use a walker Social history: Lives alone. Does use a walker. Smoked less than a pack a day for close to 25 years stopped about 25 years ago. Currently at rehab at [facility] Physical examination: VITAL SIGNS: 98.5, 112, 22, 114 x 71, 94% 2 L upon presentation GENERAL: BMI 20.3, reclining bed short of breath. EYES: Pupils equal. Conjunctiva karen l. HEENT: External appearance of nose and ears normal, oral cavity grossly normal. NECK: JVD not raised; masses not palpable. HEART: First and second heart sounds are normal; no edema. LUNGS: Respiratory rate increased, diminished breath sound prolonged expiration wheezing. ABDOMEN: Soft, nontender, liver spleen not palpable, no masses palpable. PSYCH: [Alert and oriented x3; mood and affect anxious l. MUSCULOSKELETAL:No Clubbing/cyanosis;muscles-grossly intact NEUROLOGICAL: Cranial nerves grossly intact; no facial asymmetry, power and sensation grossly intact. LYMPHATICS: No lymph nodes palpable in the axilla and neck INVESTIGATIONS, reviewed in the clinical context: May 10, 2024: White count 7.2 hemoglobin 11.9 platelets 563 sodium 135 potassium 4.5 BUN 12 creatinine 0.42 proBNP 593 Troponin I is less than 0.012 Influenza type A, type B, RSV, SARS-CoV-2: Not detected EKG tracing personally reviewed by me-normal sinus rhythm. Nonspecific ST-T wave changes Chest x-ray film personally reviewed by me-hyperinflated. Possible chronic changes. Assessment plan: -Acute severe COPD exacerbation in a previous smoker DuoNeb Q4. IV Solu-Medrol 60 mg every 6. Nebulized Pulmicort. Nebulized Perforomist. -Paroxysmal atrial fibrillation rapid ventricular rate. Now in sinus rhythm. Initially put on IV Cardizem drip. Now p.o. Cardizem added IV heparin. Switch over to oral Eliquis -Primary osteoarthritis Pain medication as needed -Multiple anterior wedge compression deformities of thoracic spine. This has been worked up recently by orthopedic physician at [facility]. Patient is due to follow-up outpatient. Patient has been told for not very surgical intervention. K-pad ordered. Home pain medication resumed -Chronic gait dysfunction does use a walker at baseline -Essential hypertension Zestril -Anxiety Celexa -Full code Care was discussed with the patient. Cardiology following. Past Medical History Past Medical History: COPD, Hypertension History of Any Multi-Drug Resistant Organisms: None Reported Past Surgical History: Section, Hernia Repair Past Psychological History: Anxiety Smoking Status: Former smoker Past Alcohol Use History: Daily Past Drug Use History: None Reported Medications and Allergies Home Medications Medication Instructions Recorded Confirmed Type Acetaminophen [Tylenol] 650 mg PO Q6H PRN 05/11/24 05/11/24 History Albuterol Sulfate [Albuterol 2 puff PO RT-Q6H PRN 05/11/24 05/11/24 History Sulfate Hfa] Calcium Carbonate [Tums] 1,000 mg PO Q6H PRN 05/11/24 05/11/24 History Cholecalciferol (Vitamin D3) 50 mcg PO DAILY 05/11/24 05/11/24 History [Vitamin D3 (50 Mcg = 2000 Iu)] Citalopram Hydrobromide [CeleXA] 40 mg PO DAILY 05/11/24 05/11/24 History Docusate Sodium 100 mg PO BID 05/11/24 05/11/24 History Ipratropium-Albuterol Nebulize 3 ml INHALATION RT-Q4H 05/11/24 05/11/24 History [Duoneb 0.5 mg-3 mg/3 ml Soln] Meclizine HCl 50 mg PO Q8H PRN 05/11/24 05/11/24 History Meclizine [Antivert] 12.5 mg PO TID 05/11/24 05/11/24 History Sennosides/Docusate Sodium [Senna 2 tab PO HS 05/11/24 05/11/24 History Plus 8.6-50 mg Tablet] lisinopriL [Zestril] 20 mg PO DAILY 05/11/24 05/11/24 History oxyCODONE HCL [oxyCODONE HCL (IR)] 10 mg PO Q4H 05/11/24 05/11/24 History polyethylene glycoL 3350 [Miralax] 17 gm PO DAILY 05/11/24 05/11/24 History Allergies Allergy/AdvReac Type Severity Reaction Status Date / Time No Known Allergies Allergy Verified 05/11/24 08:05 Physical Exam Vitals: Vital Signs Temp Pulse Resp BP Pulse Ox FiO2 05/11/24 08:01 93 05/11/24 07:52 95 05/11/24 07:44 97 05/11/24 07:34 96 40 05/11/24 06:45 90 18 121/77 98 05/11/24 04:57 101 H 22 115/81 98 05/11/24 04:31 40 05/11/24 04:00 98.2 F 05/11/24 03:40 117 H 24 129/78 98 05/11/24 02:50 117 H 32 H 146/96 97 05/11/24 02:43 112 H 24 05/11/24 02:41 112 H 20 146/96 99 05/11/24 02:17 113 H 29 H 05/11/24 02:16 112 H 30 H 05/11/24 02:11 103 H 20 134/85 100 05/11/24 02:09 105 H 28 H 05/11/24 02:07 110 H 05/11/24 02:06 150 H 22 92/44 98 05/11/24 01:49 40 05/11/24 01:39 100 05/11/24 00:05 114 H 22 05/10/24 23:59 111 H 22 05/10/24 23:45 112 H 22 05/10/24 21:52 98.5 F 102 H 18 114/71 94 L Intake and Output 05/10/24 05/11/24 05/11/24 22:59 06:59 14:59 Other: Weight 55.338 kg Results CBC & Chem 7: 05/10/24 23:27 05/10/24 23:27 Labs: Abnormal Lab Results - Last 24 Hours (Table) 05/10/24 05/10/24 05/11/24 Range/Units 23:27 23:27 03:37 RBC 3.51 L (3.80-5.40) m/uL MCV 109.7 H (80.0-100.0) fL MCHC 30.8 L (31.0-37.0) g/dL Plt Count 563 H (150-450) k/uL Lymphocytes # 0.8 L (1.0-4.8) k/uL Macrocytosis Marked A ABG Total CO2 26 H (19-24) mmol/L Hemoglobin 11.3 L (11.4-16.0) gm/dL Sodium 135 L (137-145) mmol/L Creatinine 0.42 L (0.52-1.04) mg/dL Glucose 101 H (74-99) mg/dL
[2024-05-11] MEDS: SENNOSIDES-DOCUSATE SODIUM 1 EACH TAB PO SCH (20:50)
[2024-05-12] MEDS: methylPREDNISolone SOD SUCCI 40 MG/ML 1 ML VIAL IV SCH (00:41)
[2024-05-12] MEDS: CHOLECALCIFEROL 25 MCG (1000 IU) TABLET PO SCH (09:26)
--- NOTE | 2024-05-12 09:32 | P.PN ---
Subjective Progress Note Date: 05/12/24 Reason for Consult (text): New A-fib History of present illness: This is a 68-year-old female with no prepatient presented to the hospital due to difficulty in breathing. Vious cardiac history and does not follow with a screw machine set up operator tool. She has a past medical history of COPD, hypertension, remote history of tobacco use and dependence.Patient states that she has also had a sore back and has been at subacute rehab for this. She is not on home oxygen an d denies history of obstructive sleep apnea. She denies history of atrial fibrillation or irregular heartbeat. She does state that she was at [facility] few weeks ago and may have seen a screw machine set up operator tool at that time. Patient has a nonproductive cough. Patient denies having chest pain, no fever or chills. Blood pressure 125/75, heart rate 92, pulse ox 98% on BiPAP. Patient has been started on Cardizem drip currently at 5 mg/h and heparin drip. Patient is seen today in the emergency center waiting for a bed on the cardiac stepdown unit. -EKG: #1 sinus rhythm 101 bpm, #2 atrial fibrillation 183 bpm, #3 sinus rhythm 112 bpm. -Chest x-ray: No acute process. COPD. Multilevel anterior wedge compression deformities of the thoracic spine. -Laboratory studies: WBC 7.2, hemoglobin 1.9, platelet count 563, D-dimer 0.46. BUN 0.42. Troponin negative x 1. proBNP 593. Cepheid viral panel not detected. -Home cardiac medications: Lisinopril 20 mg daily. 05/12 Patient is seen and examined in the emergency center waiting for a bed on the cardiac stepdown unit. Patient remains in sinus rhythm. Yesterday, patient was started on oral Cardizem, Eliquis. Blood pressure 129/85, heart rate 95, pulse ox 92% on 3 L nasal cannula. Patient does not have home oxygen. Echocardiogram ordered. Physical examination: Gen: This is a frail cachectic appearing 68-year-old female in no acute distress VS: reviewed HEENT: Head is atraumatic, normocephalic. Pupils equal, round. Sclerae is anict zahira. NECK: Supple. No JVD. LUNGS: Diminished breath sounds. No intercostal retractions. HEART: Regular rate and rhythm. No murmur. ABDOMEN: Soft No tenderness. EXTREMITIES: No pedal edema. No calf tenderness. NEUROLOGICAL: Patient is awake, alert and oriented x3. Assessment: New onset paroxysmal atrial fibrillation with RVR, currently in sinus rhythm COPD exacerbation Acute hypoxic respiratory failure on BiPAP initially Hypertension Back pain with compression deformity of L2 Remote history of tobacco use and dependence Plan: Continue patient's home cardiac medications Continue patient on Eliquis 5 mg twice daily and oral Cardizem 30 mg 3 times daily Obtain 2-D echocardiogram and Doppler study to assess cardiac structure and function If echocardiogram is unremarkable, patient is cleared for discharge and may follow-up in the office with Dr. Sarai Jorge in 3 weeks. Nurse practitioner note has been reviewed, I agree with documented findings and plan of care. Patient was seen and examined. Objective - Vital Signs Vital signs: Vital Signs Temp 98.1 F 05/11/24 20:47 Pulse 92 05/12/24 04:21 Resp 18 05/12/24 04:21 BP 129/85 05/12/24 04:00 Pulse Ox 92 L 05/12/24 04:00 FiO2 40 05/11/24 11:07 Intake & Output 05/11/24 05/12/24 05/12/24 18:59 06:59 18:59 Weight 55.338 kg - Labs CBC & Chem 7: 05/10/24 23:27 05/10/24 23:27
--- NOTE | 2024-05-12 17:37 | P.PN ---
Subjective Progress Note Date: 05/12/24 Patient is 68-year-old female brought in by EMS from her ECF with difficulty in breathing. On arrival, was found to be in some respiratory and placed on BiPAP. Pulmonary consult was placed for COPD exacerbation. While in the emergency department reportedly went into atrial fibrillation with rapid ventricular response, rate as high as 180s beats per minute. She was started on IV Cardizem. She was also systemically heparinized. Patient reportedly has history of COPD, home O2 dependence, former tobacco dependence, hypertension, wedge compression fracture of L2 with brace, anxiety/depression. Chest x-ray does not show any acute cardiopulmonary process. There is hyperinflation consistent with COPD. Viral screen negative for influenza, RSV, COVID. CBC: WBC count 7.2, hemoglobin 11.9, platelets 563. D-dimer 0.46. CMP unremarkable, electrolytes WDL, creatinine 0.42, glucose 101. D-dimer 0.46. Troponins less than 0.012. NT proBNP 593. Patient currently being evaluated the emergency department. She is in a state of respiratory distress, on BiPAP with settings 12/5 and FiO2 40%. SpO2 is reading 99%. Breathing in the mid 30s. Achieving tidal volumes around 300. She appears anxious, did receive a dose of Ativan 0.5 mg earlier. Her COPD is active she is actively wheezing. Per staff nurse, patient reportedly having hallucinations earlier. Interview is limited by respiratory distress. She does endorse a mostly nonproductive cough. Denies significant purulent sputum production. Denies fevers or chills. Denies chest pain, heart palpitations, lightheadedness, lower extremity edema. Denies history of atrial fibrillation. Current rhythm appears to be sinus tachycardia on bedside monitor. Continues on Cardizem which is infusing at 5 mg/h, and heparin continues per protocol. Blood pressure normotensive. On today's evaluation of 05/12/2024, the patient is being seen for a follow-up. The patient was hospitalized for an acute COPD exacerbation. The patient is feeling better and the patient is currently off the BiPAP and she was placed on 3 L of oxygen by nasal cannula with a pulse ox of 94%. Less bronchospastic and wheezy compared to yesterday. No new labs from today. Viral screen has been negative. Remains on DuoNeb updrafts. Remains on IV Solu-Medrol 40 mg every 8 hours. Remains on Perforomist and Pulmicort updrafts twice a day. Still having some ongoing back pain due to compression fraction of the spine. Cardiac rhythm is back into sinus and the patient remains on anticoagulation with Eliquis 5 mg p.o. twice a day. Patient is also on Cardizem 30 mg p.o. 3 times daily. Objective - Vital Signs Vital signs: Vital Signs Temp 98.0 F 05/12/24 11:37 Pulse 96 05/12/24 11:51 Resp 22 05/12/24 11:50 BP 120/77 05/12/24 11:37 Pulse Ox 94 L 05/12/24 11:37 FiO2 40 05/11/24 11:07 Intake & Output 05/11/24 05/12/24 05/12/24 18:59 06:59 18:59 Weight 55.338 kg - Exam GENERAL EXAM: Anxious, 68-year-old white female, stable without any significant shortness of breath on 3 L of oxygen nasal cannula. Lumbar brace on bedside table HEAD: Normocephalic and atraumatic EYES: Normal reaction of pupils, equal size. NOSE: Clear with pink turbinates. THROAT: No erythema or exudates. NECK: No masses, no JVD. CHEST: No chest wall deformity. LUNGS: Equal air entry with diffuse expiratory wheezing throughout. CVS: S1 and S2 normal with no audible murmur, regular rhythm. No extra heart sounds. ABDOMEN: No hepatosplenomegaly, active bowel sounds, no guarding or rigidity. SPINE: No scoliosis or deformity SKIN: No rashes CENTRAL NERVOUS SYSTEM: No focal deficits, tone is normal in all 4 extremities. EXTREMITIES: There is no peripheral edema, clubbing, or cyanosis. Peripheral pulses are intact. - Labs CBC & Chem 7: 05/10/24 23:27 05/10/24 23:27 Assessment and Plan Assessment: Acute COPD exacerbation with secondary shortness of breath and the patient is currently on BiPAP. Chest x-ray was reviewed and is consistent with COPD and chronic scarring changes. No airspace disease. The patient is currently off the BiPAP Acute on chronic hypoxemic respiratory failure, currently off the BiPAP on 3 L of oxygen nasal cannula paroxysmal atrial fibrillation with RVR, back into sinus rhythm and the patient is currently on oral Cardizem and anticoagulation with Eliquis Hypertension Lower back pain, with history of wedge compression fracture of L2 vertebra, with a lumbar brace Anxiety/depression Former tobacco smoker Plan: Stable on 2 L of O2 nasal cannula Chest x-ray reviewed, there is hyperinflation consistent with COPD. No acute cardiopulmonary process noted. Reportedly previously noted to be confused and having hallucinations. Obtain ABG Continue combination of DuoNebs, budesonide and formoterol inhalations, and IV Solu-Medrol Viral 4 Plex unremarkable for influenza, RSV, COVID Received empiric doses of azithromycin and Rocephin in the ED As needed Xanax for anxiety Oral Cardizem Anticoagulation with Eliquis Will likely need home O2 We will also continue to follow Time with Patient: Greater than 30
--- NOTE | 2024-05-12 17:39 | P.PN ---
Progress Note - Text Progress Note Date: 05/12/24 Chief Complaint: Short of breath Pleasant 68-year-old patient, follows with Dr. Joya Cramer. Patient recently had [facility] [place]. For that she was admitted to [facility] for rehab. While at [facility] she was seen by orthopedic surgeon for her back pain. She was told no surgical intervention at this point. And medical management and follow-up outpatient. As the back was bothering her more she decided to come to the ER. Also short of breath and more wheezing. Found to be in atrial fibrillation with rapid ventricular rate. Put on a Cardizem drip. Patient did smoke in the past. By this morning patient reverted to sinus rhythm. May 12: Breathing better. Sinus rhythm. Back pain better. Spoke to block and case maker Kerry. Patient to return to rehab. [facility]. PT OT consulted. Authorization requested. Discussed with patient Active Medications Acetaminophen (Acetaminophen Tab 325 Mg Tab) 650 mg PO Q6HR PRN PRN Reason: Mild Pain or Fever > 100.5 Albuterol/Ipratropium (Ipratropium-Albuterol 3 Ml Neb) 3 ml INHALATION RT-Q2H PRN PRN Reason: Shortness Of Breath Or Wheezing Last Admin: 05/11/24 16:57 Dose: 3 ml Albuterol/Ipratropium (Ipratropium-Albuterol 3 Ml Neb) 3 ml INHALATION RT-Q4H MICHELLE Last Admin: 05/12/24 15:40 Dose: 3 ml Alprazolam (Alprazolam 0.25 Mg Tab) 0.25 mg PO BID PRN PRN Reason: Anxiety Last Admin: 05/12/24 11:49 Dose: 0.25 mg Apixaban (Apixaban 5 Mg Tab) 5 mg PO BID MICHELLE; Protocol Last Admin: 05/12/24 09:26 Dose: 5 mg Azithromycin (Azithromycin 500 Mg Tab) 500 mg PO DAILY MICHELLE; Protocol Stop: 05/13/24 09:01 Last Admin: 05/12/24 09:26 Dose: 500 mg Budesonide (Budesonide 1 Mg/2 Ml Nebu) 1 mg INHALATION RT-BID MICHELLE Last Admin: 05/12/24 07:54 Dose: 1 mg Cholecalciferol (Cholecalciferol 25 Mcg (1000 Iu) Tablet) 50 mcg PO DAILY [facility] Last Admin: 05/12/24 09:26 Dose: 50 mcg Diltiazem HCl (Diltiazem Oral 30 Mg Tab) 30 mg PO TID [facility] Last Admin: 05/12/24 15:54 Dose: 30 mg Formoterol Fumarate (Formoterol Fumarate 20 Mcg/2 Ml Nebu) 20 mcg INHALATION RT-BID [facility] Last Admin: 05/12/24 07:54 Dose: 20 mcg Guaifenesin (Guaifenesin 600 Mg Tablet.Er) 600 mg PO Q12HR [facility] Last Admin: 05/12/24 09:26 Dose: 600 mg Lisinopril (Lisinopril 20 Mg Tab) 20 mg PO DAILY [facility] Last Admin: 05/12/24 09:25 Dose: 20 mg Methylprednisolone Sodium Succinate (Methylprednisolone Sod Succi 40 Mg/Ml 1 Ml Vial) 40 mg IV Q8HR [facility] Last Admin: 05/12/24 15:54 Dose: 40 mg Naloxone HCl (Naloxone 0.4 Mg/Ml 1 Ml Vial) 0.2 mg IVP Q2M PRN PRN Reason: Opioid Reversal Ondansetron HCl (Ondansetron 4 Mg/2 Ml Vial) 4 mg IVP Q6HR PRN PRN Reason: Nausea And Vomiting Oxycodone HCl (Oxycodone Hcl 5 Mg Tab) 10 mg PO Q4HR [facility] Last Admin: 05/12/24 15:52 Dose: 10 mg Polyethylene Glycol (Polyethylene Glycol 3350 17 Gm Powd.Pack) 17 gm PO DAILY [facility] Last Admin: 05/12/24 09:26 Dose: Not Given Senna/Docusate Sodium (Sennosides-Docusate Sodium 1 Each Tab) 2 each PO HS [facility] Last Admin: 05/11/24 20:50 Dose: 2 each Social history: Lives alone. Does use a walker. Smoked less than a pack a day for close to 25 years stopped about 25 years ago. Currently at rehab at [facility] Physical examination: VITAL SIGNS: 98, 102, 20, 120 x 77, 94% on 3 L GENERAL: BMI 20.3, reclining bed, breathing better EYES: Pupils equal. Conjunctiva karen l. HEENT: External appearance of nose and ears normal, oral cavity grossly normal. NECK: JVD not raised; masses not palpable. HEART: First and second heart sounds are normal; no edema. LUNGS: Respiratory rate increased, diminished breath sound prolonged expiration ABDOMEN: Soft, nontender, liver spleen not palpable, no masses palpable. PSYCH: [Alert and oriented x3; mood and affect anxious l. MUSCULOSKELETAL:No Clubbing/cyanosis;muscles-grossly intact INVESTIGATIONS, reviewed in the clinical context: May 10, 2024: White count 7.2 hemoglobin 11.9 platelets 563 sodium 135 potassium 4.5 BUN 12 creatinine 0.42 proBNP 593 Troponin I is less than 0.012 Influenza type A, type B, RSV, SARS-CoV-2: Not detected EKG tracing personally reviewed by me-normal sinus rhythm. Nonspecific ST-T wave changes Chest x-ray film personally reviewed by me-hyperinflated. Possible chronic changes. Assessment plan: -Acute severe COPD exacerbation in a previous smoker: Better DuoNeb Q4. Decrease IV Solu-Medrol 40 mg Q8. Nebulized Pulmicort. Nebulized Perforomist. -Paroxysmal atrial fibrillation rapid ventricular rate. Remains in sinus rhythm. Initially put on IV Cardizem drip. Now p.o. Cardizem 30 mg every 8 IV heparin. 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 This has been worked up recently by orthopedic physician at [facility]. Patient is due to follow-up outpatient. Patient has been told for not very surgical intervention. K-pad ordered. Home pain medication resumed -Chronic gait dysfunction does use a walker at baseline -Essential hypertension Zestril -Anxiety Celexa -Full code Discussed with patient. Improving. Spoke with block and case maker Kerry. Working on getting the patient back to [facility]. Authorization requested. Past Medical History Past Medical History: COPD, Hypertension History of Any Multi-Drug Resistant Organisms: None Reported Past Surgical History: Section, Hernia Repair Past Psychological History: Anxiety Smoking Status: Former smoker Past Alcohol Use History: Daily Past Drug Use History: None Reported
[2024-05-13] MEDS: diphenhydrAMINE 25 MG CAP PO STA (01:10)
[2024-05-13] MEDS: diphenhydrAMINE 25 MG CAP PO PRN (08:02)
--- NOTE | 2024-05-13 09:33 | P.PN ---
Subjective HISTORY OF PRESENT ILLNESS: This is a 68-year-old female with no prepatient presented to the hospital due to difficulty in breathing. Vious cardiac history and does not follow with a vector control assistant. She has a past medical history of COPD, hypertension, remote history of tobacco use and dependence.Patient states that she has also had a sore back and has been at subacute rehab for this. She is not on home oxygen and denies history of obstructive sleep apnea. She denies history of atrial fibrillation or irregular heartbeat. She does state that she was at [facility] few weeks ago and may have seen a vector control assistant at that time. Patient has a nonproductive cough. Patient denies having chest pain, no fever or chills. Blood pressure 125/75, heart rate 92, pulse ox 98% on BiPAP. Patient has been started on Cardizem drip currently at 5 mg/h and heparin drip. Patient is seen today in the emergency center waiting for a bed on the cardiac stepdown unit. -EKG: #1 sinus rhythm 101 bpm, #2 atrial fibrillation 183 bpm, #3 sinus rhythm 112 bpm. -Chest x-ray: No acute process. COPD. Multilevel anterior wedge compression deformities of the thoracic spine. -Laboratory studies: WBC 7.2, hemoglobin 1.9, platelet count 563, D-dimer 0.46. BUN 0.42. Troponin negative x 1. proBNP 593. Cepheid viral panel not detected. -Home cardiac medications: Lisinopril 20 mg daily. 05/12 Patient is seen and examined in the emergency center waiting for a bed on the cardiac stepdown unit. Patient remains in sinus rhythm. Yesterday, patient was started on oral Cardizem, Eliquis. Blood pressure 129/85, heart rate 95, pulse ox 92% on 3 L nasal cannula. Patient does not have home oxygen. Echocardiogram ordered. 05/13/2024 Patient examined this morning at the bedside. Patient currently denies chest pain or pressure. She does report some shortness of breath. She also complains of a cough. She is maintaining sinus mechanism. Blood pressure stable. 2D echo remains pending. PHYSICAL EXAM: VITAL SIGNS: Reviewed. GENERAL: Well-developed in no acute distress. NECK: Supple. No JVD or thyromegaly LUNGS: Respirations even and unlabored. Lungs diminished bilaterally HEART: Regular rate and rhythm. S1 and S2 heard. EXTREMITIES: Normal range of motion. No clubbing or cyanosis. Peripheral pulses intact. No lower extremity edema ASSESSMENT: New onset paroxysmal atrial fibrillation with RVR, currently in sinus rhythm COPD exacerbation Acute hypoxic respiratory failure on BiPAP initially Hypertension Back pain with compression deformity of L2 Remote history of tobacco use and dependence PLAN: 2D echo ordered. Await results. Continue current cardiac medications including Eliquis, oral Cardizem, and lisinopril If echocardiogram is unremarkable, patient is cleared for discharge from a cardiac perspective and may follow-up in the office with Dr. Sarai Key in 3 weeks. Nurse practitioner note has been reviewed by physician. Signing provider agrees with the documented findings, assessment, and plan of care documented by TEMPLATE FITTER as a scribe. Objective - Vital Signs Vital signs: Vital Signs Temp 97.6 F 05/13/24 07:35 Pulse 85 05/13/24 07:35 Resp 19 05/13/24 07:35 BP 130/73 05/13/24 07:35 Pulse Ox 96 05/13/24 07:35 FiO2 40 05/13/24 06:33 Intake & Output 05/12/24 05/13/24 05/13/24 18:59 06:59 18:59 Output Total 300 Balance -300 Output: Urine 300 Other: Voiding Method External Catheter - Labs CBC & Chem 7: 05/10/24 23:27 05/10/24 23:27
[2024-05-13] MEDS: methylPREDNISolone SOD SUCCI 125 MG/2 ML VIAL IV SCH (12:02)
--- NOTE | 2024-05-13 14:32 | P.PN ---
Subjective Progress Note Date: 05/13/24 Patient is 68-year-old female brought in by EMS from her ECF with difficulty in breathing. On arrival, was found to be in some respiratory and placed on BiPAP. Pulmonary consult was placed for COPD exacerbation. While in the emergency department reportedly went into atrial fibrillation with rapid ventricular response, rate as high as 180s beats per minute. She was started on IV Cardizem. She was also systemically heparinized. Patient reportedly has history of COPD, home O2 dependence, former tobacco dependence, hypertension, wedge compression fracture of L2 with brace, anxiety/depression. Chest x-ray does not show any acute cardiopulmonary process. There is hyperinflation consistent with COPD. Viral screen negative for influenza, RSV, COVID. CBC: WBC count 7.2, hemoglobin 11.9, platelets 563. D-dimer 0.46. CMP unremarkable, electrolytes WDL, creatinine 0.42, glucose 101. D-dimer 0.46. Troponins less than 0.012. NT proBNP 593. Patient currently being evaluated the emergency department. She is in a state of respiratory distress, on BiPAP with settings 12/5 and FiO2 40%. SpO2 is reading 99%. Breathing in the mid 30s. Achieving tidal volumes around 300. She appears anxious, did receive a dose of Ativan 0.5 mg earlier. Her COPD is active she is actively wheezing. Per staff nurse, patient reportedly having hallucinations earlier. Interview is limited by respiratory distress. She does endorse a mostly nonproductive cough. Denies significant purulent sputum production. Denies fevers or chills. Denies chest pain, heart palpitations, lightheadedness, lower extremity edema. Denies history of atrial fibrillation. Current rhythm appears to be sinus tachycardia on bedside monitor. Continues on Cardizem which is infusing at 5 mg/h, and heparin continues per protocol. Blood pressure normotensive. On today's evaluation of 05/12/2024, the patient is being seen for a follow-up. The patient was hospitalized for an acute COPD exacerbation. The patient is feeling better and the patient is currently off the BiPAP and she was placed on 3 L of oxygen by nasal cannula with a pulse ox of 94%. Less bronchospastic and wheezy compared to yesterday. No new labs from today. Viral screen has been negative. Remains on DuoNeb updrafts. Remains on IV Solu-Medrol 40 mg every 8 hours. Remains on Perforomist and Pulmicort updrafts twice a day. Still having some ongoing back pain due to compression fraction of the spine. Cardiac rhythm is back into sinus and the patient remains on anticoagulation with Eliquis 5 mg p.o. twice a day. Patient is also on Cardizem 30 mg p.o. 3 times daily. On 05/13/2024, the patient is being seen for a follow-up. Reviewed anxious. Continues to be bronchospastic and wheezy. She is currently on oxygen at 4 L/min nasal cannula with a pulse ox of 97%. Her blood gas from yesterday showed a pH of 7.37 with a pCO2 of 43 and pO2 of 84 and this was an FiO2 of 40%. Remains on DuoNeb updrafts. Remains a performance of Pulmicort nebulized twice a day and IV Solu-Medrol. Limited improvement compared to yesterday. Not ready for discharge at this point. Also being seen by cardiology regardingHer atrial fibrillation. The patient is currently in sinus mechanism. Echocardiogram is still pending. Meanwhile, the patient is maintained on Cardizem 30 mg p.o. 3 times daily and anticoagulation with Eliquis. Objective - Vital Signs Vital signs: Vital Signs Temp 97.6 F 05/13/24 07:35 Pulse 85 05/13/24 07:35 Resp 19 05/13/24 07:35 BP 130/73 05/13/24 07:35 Pulse Ox 96 05/13/24 07:35 FiO2 40 05/13/24 06:33 Intake & Output 05/12/24 05/13/24 05/13/24 18:59 06:59 18:59 Output Total 300 Balance -300 Output: Urine 300 Other: Voiding Method External Catheter External Catheter - Exam GENERAL EXAM: Anxious, 68-year-old white female, stable without any significant shortness of breath on 3 L of oxygen nasal cannula. Lumbar brace on bedside table HEAD: Normocephalic and atraumatic EYES: Normal reaction of pupils, equal size. NOSE: Clear with pink turbinates. THROAT: No erythema or exudates. NECK: No masses, no JVD. CHEST: No chest wall deformity. LUNGS: Equal air entry with diffuse expiratory wheezing throughout. CVS: S1 and S2 normal with no audible murmur, regular rhythm. No extra heart sounds. ABDOMEN: No hepatosplenomegaly, active bowel sounds, no guarding or rigidity. SPINE: No scoliosis or deformity SKIN: No rashes CENTRAL NERVOUS SYSTEM: No focal deficits, tone is normal in all 4 extremities. EXTREMITIES: There is no peripheral edema, clubbing, or cyanosis. Peripheral pulses are intact. - Labs CBC & Chem 7: 05/10/24 23:27 05/10/24 23:27 Assessment and Plan Assessment: Acute COPD exacerbation with secondary shortness of breath and the patient is c urrently on BiPAP. Chest x-ray was reviewed and is consistent with COPD and chronic scarring changes. No airspace disease. The patient is currently off the BiPAP Acute on chronic hypoxemic respiratory failure, currently off the BiPAP on 4 L of oxygen by nasal cannula paroxysmal atrial fibrillation with RVR, back into sinus rhythm and the patient is currently on oral Cardizem and anticoagulation with Eliquis Hypertension Lower back pain, with history of wedge compression fracture of L2 vertebra, with a lumbar brace Anxiety/depression Former tobacco smoker Plan: Limited progress since yesterday. Continue titrating oxygen flow to maintain saturation above 90% Chest x-ray reviewed, there is hyperinflation consistent with COPD. No acute cardiopulmonary process noted. Continue combination of DuoNebs budesonide and formoterol inhalations, IV Solu-Medrol Viral 4 Plex unremarkable for influenza, RSV, COVID Xanax for anxiety Oral Cardizem Anticoagulation with Eliquis Will likely need home O2 We will also continue to follow Time with Patient: Greater than 30
--- NOTE | 2024-05-13 18:55 | P.PN ---
Progress Note - Text Progress Note Date: 05/13/24 Chief Complaint: Short of breath Pleasant 68-year-old patient, follows with Dr. Joya Cramer. Patient recently had [facility]. For that she was admitted to [facility] for rehab. While at [facility] she was seen by orthopedic surgeon for her back pain. She was told no surgical intervention at this point. And medical management and follow-up outpatient. As the back was bothering her more she decided to come to the ER. Also short of breath and more wheezing. Found to be in atrial fibrillation with rapid ventricular rate. Put on a Cardizem drip. Patient did smoke in the past. By this morning patient reverted to sinus rhythm. May 12: Breathing better. Sinus rhythm. Back pain better. Spoke to caser in [place]. Patient to return to rehab. [facility]. PT OT consulted. Authorization requested. Discussed with patient May 13: Anxious. A bit more short of breath. IV Solu-Medrol increased by pulmonary. Also on DuoNeb. Nebulized Pulmicort. Eating fair. Told the patient sit up on recliner. Back pain controlled. Oral intake good Active Medications Acetaminophen (Acetaminophen Tab 325 Mg Tab) 650 mg PO Q6HR PRN PRN Reason: Mild Pain or Fever > 100.5 Albuterol/Ipratropium (Ipratropium-Albuterol 3 Ml Neb) 3 ml INHALATION RT-Q2H PRN PRN Reason: Shortness Of Breath Or Wheezing Last Admin: 05/13/24 14:45 Dose: 3 ml Albuterol/Ipratropium (Ipratropium-Albuterol 3 Ml Neb) 3 ml INHALATION RT-Q4H [facility] Last Admin: 05/13/24 15:01 Dose: Not Given Alprazolam (Alprazolam 0.5 Mg Tab) 0.5 mg PO BID PRN PRN Reason: Anxiety Apixaban (Apixaban 5 Mg Tab) 5 mg PO BID [facility]; Protocol Last Admin: 05/13/24 08:01 Dose: 5 mg Budesonide (Budesonide 1 Mg/2 Ml Nebu) 1 mg INHALATION RT-BID [facility] Last Admin: 05/13/24 06:05 Dose: 1 mg Cholecalciferol (Cholecalciferol 25 Mcg (1000 Iu) Tablet) 50 mcg PO DAILY [facility] Last Admin: 05/13/24 08:01 Dose: 50 mcg Diltiazem HCl (Diltiazem Oral 30 Mg Tab) 30 mg PO TID [facility] Last Admin: 05/13/24 17:19 Dose: 30 mg Diphenhydramine HCl (Diphenhydramine 25 Mg Cap) 25 mg PO Q6HR PRN PRN Reason: Itching Last Admin: 05/13/24 08:02 Dose: 25 mg Formoterol Fumarate (Formoterol Fumarate 20 Mcg/2 Ml Nebu) 20 mcg INHALATION RT-BID [facility] Last Admin: 05/13/24 06:05 Dose: 20 mcg Guaifenesin (Guaifenesin 600 Mg Tablet.Er) 600 mg PO Q12HR [facility] Last Admin: 05/13/24 07:45 Dose: Not Given Lisinopril (Lisinopril 20 Mg Tab) 20 mg PO DAILY [facility] Last Admin: 05/13/24 08:01 Dose: 20 mg Methylprednisolone Sodium Succinate (Methylprednisolone Sod Succi 125 Mg/2 Ml Vial) 60 mg IV Q6HR [facility] Last Admin: 05/13/24 17:19 Dose: 60 mg Naloxone HCl (Naloxone 0.4 Mg/Ml 1 Ml Vial) 0.2 mg IVP Q2M PRN PRN Reason: Opioid Reversal Ondansetron HCl (Ondansetron 4 Mg/2 Ml Vial) 4 mg IVP Q6HR PRN PRN Reason: Nausea And Vomiting Oxycodone HCl (Oxycodone Hcl 5 Mg Tab) 10 mg PO Q4HR [facility] Last Admin: 05/13/24 16:53 Dose: 10 mg Polyethylene Glycol (Polyethylene Glycol 3350 17 Gm Powd.Pack) 17 gm PO DAILY [facility] Last Admin: 05/13/24 08:01 Dose: 17 gm Senna/Docusate Sodium (Sennosides-Docusate Sodium 1 Each Tab) 2 each PO HS [facility] Last Admin: 05/12/24 22:52 Dose: 2 each Social history: Lives alone. Does use a walker. Smoked less than a pack a day for close to 25 years stopped about 25 years ago. Currently at rehab at [facility] Physical examination: VITAL SIGNS: 97.6, 94, 24, 102/59, 95% 4 L GENERAL: BMI 20.3, reclining bed, some shortness of breath EYES: Pupils equal. Conjunctiva karen l. HEENT: External appearance of nose and ears normal, oral cavity grossly normal. NECK: JVD not raised; masses not palpable. HEART: First and second heart sounds are normal; no edema. LUNGS: Respiratory rate increased, diminished breath sound prolonged expiration ABDOMEN: Soft, nontender, liver spleen not palpable, no masses palpable. PSYCH: [Alert and oriented x3; mood and affect anxious MUSCULOSKELETAL:No Clubbing/cyanosis;muscles-grossly intact INVESTIGATIONS, reviewed in the clinical context: May 10, 2024: White count 7.2 hemoglobin 11.9 platelets 563 sodium 135 potassium 4.5 BUN 12 creatinine 0.42 proBNP 593 Troponin I is less than 0.012 Influenza type A, type B, RSV, SARS-CoV-2: Not detected EKG tracing personally reviewed by me-normal sinus rhythm. Nonspecific ST-T wave changes Chest x-ray film personally reviewed by me-hyperinflated. Possible chronic changes. Assessment plan: -Acute severe COPD exacerbation in a previous smoker: Some worsening DuoNeb Q4. Increase IV Solu-Medrol 60 mg Q6 nebulized Pulmicort. Nebulized Perforomist. -Paroxysmal atrial fibrillation rapid ventricular rate. Remains in sinus rhythm. Initially put on IV Cardizem drip. Now p.o. Cardizem 30 mg every 8 IV heparin. 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 This has been worked up recently by orthopedic physician at [facility]. Patient is due to follow-up outpatient. Patient has been told for not very surgical intervention. K-pad ordered. Oxycodone 10 mg Q4 scheduled-Home dose -Chronic gait dysfunction does use a walker at baseline -Essential hypertension Zestril -Anxiety Celexa -Full code -Disposition: Awaiting to return to rehab at [facility] Dose of Solu-Medrol increased. Discussed. Past Medical History Past Medical History: COPD, Hypertension History of Any Multi-Drug Resistant Organisms: None Reported Past Surgical History: Section, Hernia Repair Past Psychological History: Anxiety Smoking Status: Former smoker Past Alcohol Use History: Daily Past Drug Use History: None Reported
[2024-05-13] MEDS: ALPRAZolam 0.5 MG TAB PO PRN (21:20)
--- NOTE | 2024-05-14 08:46 | CA ---
Transthoracic Echo Report Name: Kaylee May Age: 68 Gender: F : 1955 Exam Date: 05/13/2024 12:03 Exam Location: [place] [facility] Ht (in): 65 Wt (lb): 122 Ordering Physician: Lillian Hampton Attending/Referring Phys: [id number], Berta Stopping Builder Hiral Ramírez RDCS Procedure CPT: Indications: LVF Cardiac Hx: Technical Quality: Fair Contrast 1: Total Dose (mL): Contrast 2: Total Dose (mL): MEASUREMENTS (Male / Female) Normal Values 2D ECHO LV Diastolic Diameter PLAX 4.6 cm 4.2 - 5.9 / 3.9 - 5.3 cm LV Systolic Diameter PLAX 2.8 cm IVS Diastolic Thickness 0.7 cm 0.6 - 1.0 / 0.6 - 0.9 cm LVPW Diastolic Thickness 1.0 cm 0.6 - 1.0 / 0.6 - 0.9 cm LV Relative Wall Thickness 0.4 RV Internal Dim ED PLAX 2.5 cm LA Systolic Diameter LX 4.5 cm 3.0 - 4.0 / 2.7 - 3.8 cm LV Diastolic Volume MOD BP 57.6 cm??? 67 - 155 / 56 - 104 cm??? LV Systolic Volume MOD BP 17.7 cm??? 22 - 58 / 19 - 49 cm??? LV Ejection Fraction MOD BP 69.3 % >= 55 % LV Cardiac Index MOD BP 2433.2 cm???/min???m??? LV Diastolic Volume MOD 4C 64.9 cm??? LV Systolic Volume MOD 4C 18.2 cm??? LV Ejection Fraction MOD 4C 72.0 % LV Cardiac Index MOD 4C 2849.2 cm???/min???m??? LV Diastolic Length 4C 7.2 cm LV Systolic Length 4C 6.4 cm LV Diastolic Volume MOD 2C 50.2 cm??? LV Systolic Volume MOD 2C 15.9 cm??? LV Ejection Fraction MOD 2C 68.3 % LV Cardiac Index MOD 2C 2092.6 cm???/min???m??? LV Diastolic Length 2C 6.9 cm LV Systolic Length 2C 5.8 cm LA Volume 65.6 cm??? 18 - 58 / 22 - 52 cm??? LA Volume Index 41.3 cm???/m??? 16 - 28 cm???/m??? M-MODE Aortic Root Diameter MM 2.8 cm LA Systolic Diameter MM 3.8 cm LA Ao Ratio MM 1.4 AV Cusp Separation MM 1.4 cm DOPPLER MV Area PHT 3.6 cm??? Mitral E Point Velocity 104.9 cm/s Mitral A Point Velocity 74.0 cm/s Mitral E to A Ratio 1.4 MV Deceleration Time 213.5 ms TR Peak Velocity 313.3 cm/s TR Peak Gradient 39.3 mmHg Right Ventricular Systolic Press 43.2 mmHg FINDINGS Left Ventricle Left ventricular ejection fraction is estimated at 60-65 %. Normal left ventricular systolic function with no obvious regional wall motion abnormalities. Left ventricular cavity size normal. Left ventricular wall thickness normal. Right Ventricle Normal right ventricular size and function. Mild pulmonary hypertension. Right Atrium Moderate right atrial dilatation. Left Atrium Moderately increased left atrial diameter. Moderately increased left atrial volume. Mildly increased left atrial area. Moderate left atrial dilatation. Mitral Valve Structurally normal mitral valve. Mild mitral regurgitation. No mitral stenosis. Aortic Valve Trileaflet aortic valve. No aortic valve stenosis or regurgitation. Tricuspid Valve Structurally normal tricuspid valve. [id number] tricuspid regurgitation. No tricuspid stenosis. Pulmonic Valve Structurally normal pulmonic valve. Trace pulmonic regurgitation. No pulmonic stenosis. Pericardium No pericardial or pleural effusion. Aorta Normal size aortic root and proximal ascending aorta. CONCLUSIONS LV EF 60-65% Mild Pulmonary HTN Mild MR [id number] TR Moderate LA dilatation Previewed by: Dr. Nito Key MD (Electronically Signed) Final Date: 14 May 2024 08:45
--- NOTE | 2024-05-14 09:58 | P.PN ---
Subjective HISTORY OF PRESENT ILLNESS: This is a 68-year-old female with no prepatient presented to the hospital due to difficulty in breathing. Vious cardiac history and does not follow with a bed spring maker. She has a past medical history of COPD, hypertension, remote history of tobacco use and dependence.Patient states that she has also had a sore back and has been at subacute rehab for this. She is not on home oxygen and denies history of obstructive sleep apnea. She denies history of atrial fibrillation or irregular heartbeat. She does state that she was at [facility] few weeks ago and may have seen a bed spring maker at that time. Patient has a nonproductive cough. Patient denies having chest pain, no fever or chills. Blood pressure 125/75, heart rate 92, pulse ox 98% on BiPAP. Patient has been started on Cardizem drip currently at 5 mg/h and heparin drip. Patient is seen today in the emergency center waiting for a bed on the cardiac stepdown unit. -EKG: #1 sinus rhythm 101 bpm, #2 atrial fibrillation 183 bpm, #3 sinus rhythm 112 bpm. -Chest x-ray: No acute process. COPD. Multilevel anterior wedge compression deformities of the thoracic spine. -Laboratory studies: WBC 7.2, hemoglobin 1.9, platelet count 563, D-dimer 0.46. BUN 0.42. Troponin negative x 1. proBNP 593. Cepheid viral panel not detected. -Home cardiac medications: Lisinopril 20 mg daily. 05/12 Patient is seen and examined in the emergency center waiting for a bed on the cardiac stepdown unit. Patient remains in sinus rhythm. Yesterday, patient was started on oral Cardizem, Eliquis. Blood pressure 129/85, heart rate 95, pulse ox 92% on 3 L nasal cannula. Patient does not have home oxygen. Echocardiogram ordered. 05/13/2024 Patient examined this morning at the bedside. Patient currently denies chest pain or pressure. She does report some shortness of breath. She also complains of a cough. She is maintaining sinus mechanism. Blood pressure stable. 2D echo remains pending. 05/14/2024 Patient examined this morning at the bedside. Patient currently denies chest pain or pressure. She denies shortness of breath. Telemetry reveals sinus mechanism. Echocardiogram completed revealing ejection fraction 60 to 65%, no obvious regional wall motion abnormalities, mild pulm hypertension, mild MR, mild to moderate TR PHYSICAL EXAM: VITAL SIGNS: Reviewed. GENERAL: Well-developed in no acute distress. NECK: Supple. No JVD or thyromegaly LUNGS: Respirations even and unlabored. Lungs diminished bilaterally HEART: Regular rate and rhythm. S1 and S2 heard. EXTREMITIES: Normal range of motion. No clubbing or cyanosis. Peripheral pulses intact. No lower extremity edema ASSESSMENT: New onset paroxysmal atrial fibrillation with RVR, currently in sinus rhythm COPD exacerbation Acute hypoxic respiratory failure on BiPAP initially Hypertension Back pain with compression deformity of L2 Remote history of tobacco use and dependence PLAN: Continue current cardiac medications including Eliquis, oral Cardizem, and lisinopril 2D echo obtained and reviewed patient is cleared for discharge from a cardiac perspective and may follow-up in the office with Dr. Sarai Key in 3 weeks. We will sign off. Please reconsult if needed. Nurse practitioner note has been reviewed by physician. Signing provider agrees with the documented findings, assessment, and plan of care documented by [employer] as a scribe. Objective - Vital Signs Vital signs: Vital Signs Temp 97.7 F 05/14/24 07:15 Pulse 104 H 05/14/24 08:22 Resp 18 05/14/24 07:15 BP 130/78 05/14/24 07:15 Pulse Ox 94 L 05/14/24 07:54 FiO2 40 05/13/24 12:40 Intake & Output 05/13/24 05/14/24 05/14/24 18:59 06:59 18:59 Intake Total 600 240 Balance 600 240 Intake: Oral 600 240 Other: Voiding Method External Catheter Diaper External Catheter # Voids 3 - Labs CBC & Chem 7: 05/10/24 23:27 05/10/24 23:27
[2024-05-14] MEDS: PARoxetine 20 MG TAB PO SCH (11:57)
--- NOTE | 2024-05-14 13:34 | P.PN ---
Progress Note - Text Progress Note Date: 05/14/24 Chief Complaint: Short of breath Pleasant 68-year-old patient, follows with Dr. Joya Cramer. Patient recently had [facility]. For that she was admitted to [facility] for rehab. While at [facility] she was seen by orthopedic surgeon for her back pain. She was told no surgical intervention at this point. And medical management and follow-up outpatient. As the back was bothering her more she decided to come to the ER. Also short of breath and more wheezing. Found to be in atrial fibrillation with rapid ventricular rate. Put on a Cardizem drip. Patient did smoke in the past. By this morning patient reverted to sinus rhythm. May 12: Breathing better. Sinus rhythm. Back pain better. Spoke to medical case manager [place]. Patient to return to rehab. [facility]. PT OT consulted. Authorization requested. Discussed with patient May 13: Anxious. A bit more short of breath. IV Solu-Medrol increased by pulmonary. Also on DuoNeb. Nebulized Pulmicort. Eating fair. Told the patient sit up on recliner. Back pain controlled. Oral intake good MAY 14: Remains anxious. Will add Paxil 20 mg a day. Remains on IV Solu-Medrol 60 mg every 6. Patient is bit tearful about going home. Did reemphasize she will go back to rehab. Other medications to continue. Pain controlled. Eating 100%. Some tremors.-Fine. Cut back DuoNeb to every 6 hours. DC Perforomist. Active Medications Acetaminophen (Acetaminophen Tab 325 Mg Tab) 650 mg PO Q6HR PRN PRN Reason: Mild Pain or Fever > 100.5 Albuterol/Ipratropium (Ipratropium-Albuterol 3 Ml Neb) 3 ml INHALATION RT-Q2H PRN PRN Reason: Shortness Of Breath Or Wheezing Last Admin: 05/13/24 14:45 Dose: 3 ml Albuterol/Ipratropium (Ipratropium-Albuterol 3 Ml Neb) 3 ml INHALATION QID [facility] Alprazolam (Alprazolam 0.5 Mg Tab) 0.5 mg PO BID PRN PRN Reason: Anxiety Last Admin: 05/14/24 10:21 Dose: 0.5 mg Apixaban (Apixaban 5 Mg Tab) 5 mg PO BID [facility]; Protocol Last Admin: 05/14/24 08:57 Dose: 5 mg Budesonide (Budesonide 1 Mg/2 Ml Nebu) 1 mg INHALATION RT-BID [facility] Last Admin: 05/14/24 07:54 Dose: 1 mg Cholecalciferol (Cholecalciferol 25 Mcg (1000 Iu) Tablet) 50 mcg PO DAILY [facility] Last Admin: 05/14/24 08:59 Dose: 50 mcg Diltiazem HCl (Diltiazem Oral 30 Mg Tab) 30 mg PO TID [facility] Last Admin: 05/14/24 09:00 Dose: 30 mg Diphenhydramine HCl (Diphenhydramine 25 Mg Cap) 25 mg PO Q6HR PRN PRN Reason: Itching Last Admin: 05/14/24 10:20 Dose: 25 mg Guaifenesin (Guaifenesin 600 Mg Tablet.Er) 600 mg PO Q12HR [facility] Last Admin: 05/14/24 08:57 Dose: 600 mg Lisinopril (Lisinopril 20 Mg Tab) 20 mg PO DAILY [facility] Last Admin: 05/14/24 09:00 Dose: 20 mg Methylprednisolone Sodium Succinate (Methylprednisolone Sod Succi 125 Mg/2 Ml Vial) 60 mg IV Q6HR [facility] Last Admin: 05/14/24 11:56 Dose: 60 mg Naloxone HCl (Naloxone 0.4 Mg/Ml 1 Ml Vial) 0.2 mg IVP Q2M PRN PRN Reason: Opioid Reversal Ondansetron HCl (Ondansetron 4 Mg/2 Ml Vial) 4 mg IVP Q6HR PRN PRN Reason: Nausea And Vomiting Oxycodone HCl (Oxycodone Hcl 5 Mg Tab) 10 mg PO Q4HR [facility] Last Admin: 05/14/24 11:57 Dose: 10 mg Paroxetine HCl (Paroxetine 20 Mg Tab) 20 mg PO DAILY [facility] Last Admin: 05/14/24 11:57 Dose: 20 mg Polyethylene Glycol (Polyethylene Glycol 3350 17 Gm Powd.Pack) 17 gm PO DAILY [facility] Last Admin: 05/14/24 08:58 Dose: 17 gm Senna/Docusate Sodium (Sennosides-Docusate Sodium 1 Each Tab) 2 each PO HS [facility] Last Admin: 03/15/25 21:20 Dose: 2 each Social history: Lives alone. Does use a walker. Smoked less than a pack a day for close to 25 years stopped about 25 years ago. Currently at rehab at [facility] Physical examination: VITAL SIGNS: 97.7, 82, 18, [birth year]/1977, 94% on 4 L GENERAL: BMI 20.3, reclining bed, some short of breath. Anxious. EYES: Pupils equal. Conjunctiva karen l. HEENT: External appearance of nose and ears normal, oral cavity grossly normal. NECK: JVD not raised; masses not palpable. HEART: First and second heart sounds are normal; no edema. LUNGS: Respiratory rate increased, diminished breath sound prolonged expiration ABDOMEN: Soft, nontender, liver spleen not palpable, no masses palpable. PSYCH: [Alert and oriented x3; mood and affect anxious MUSCULOSKELETAL:No Clubbing/cyanosis;muscles-grossly intact Neuro: Fine tremors INVESTIGATIONS, reviewed in the clinical context: May 10, 2024: White count 7.2 hemoglobin 11.9 platelets 563 sodium 135 potassium 4.5 BUN 12 creatinine 0.42 proBNP 593 Troponin I is less than 0.012 Influenza type A, type B, RSV, SARS-CoV-2: Not detected EKG tracing personally reviewed by me-normal sinus rhythm. Nonspecific ST-T wave changes Chest x-ray film personally reviewed by me-hyperinflated. Possible chronic changes. Assessment plan: -Acute severe COPD exacerbation in a previous smoker: Some improvement . IV Solu-Medrol 60 mg Q6 nebulized Pulmicort. Cut back DuoNeb to every 6 and DC Perforomist because of tremors. -Paroxysmal atrial fibrillation rapid ventricular rate. Remains in sinus rhythm. Initially put on IV Cardizem drip. Now p.o. Cardizem 30 mg every 8 IV heparin. 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 This has been worked up recently by orthopedic physician at [facility]. Patient is due to follow-up outpatient. Patient has been told for not very surgical intervention. K-pad ordered. Oxycodone 10 mg Q4 scheduled-Home dose -Chronic gait dysfunction does use a walker at baseline -Essential hypertension Zestril -Anxiety, uncontrolled Dose of Xanax was increased. Started on Paxil.: [Celexa not continued] -Full code -Disposition: return to rehab at [facility] continue. Because of fine tremors cut back DuoNeb to every 6 and DC Perforomist. Ashley added Past Medical History Past Medical History: COPD, Hypertension History of Any Multi-Drug Resistant Organisms: None Reported Past Surgical History: Section, Hernia Repair Past Psychological History: Anxiety Smoking Status: Former smoker Past Alcohol Use History: Daily Past Drug Use History: None Reported
--- NOTE | 2024-05-14 14:21 | P.PN ---
Subjective Progress Note Date: 05/14/24 Patient is 68-year-old female brought in by EMS from her ECF with difficulty in breathing. On arrival, was found to be in some respiratory and placed on BiPAP. Pulmonary consult was placed for COPD exacerbation. While in the emergency department reportedly went into atrial fibrillation with rapid ventricular response, rate as high as 180s beats per minute. She was started on IV Cardizem. She was also systemically heparinized. Patient reportedly has history of COPD, home O2 dependence, former tobacco dependence, hypertension, wedge compression fracture of L2 with brace, anxiety/depression. Chest x-ray does not show any acute cardiopulmonary process. There is hyperinflation consistent with COPD. Viral screen negative for influenza, RSV, COVID. CBC: WBC count 7.2, hemoglobin 11.9, platelets 563. D-dimer 0.46. CMP unremarkable, electrolytes WDL, creatinine 0.42, glucose 101. D-dimer 0.46. Troponins less than 0.012. NT proBNP 593. Patient currently being evaluated the emergency department. She is in a state of respiratory distress, on BiPAP with settings 12/5 and FiO2 40%. SpO2 is reading 99%. Breathing in the mid 30s. Achieving tidal volumes around 300. She appears anxious, did receive a dose of Ativan 0.5 mg earlier. Her COPD is active she is actively wheezing. Per staff nurse, patient reportedly having hallucinations earlier. Interview is limited by respiratory distress. She does endorse a mostly nonproductive cough. Denies significant purulent sputum production. Denies fevers or chills. Denies chest pain, heart palpitations, lightheadedness, lower extremity edema. Denies history of atrial fibrillation. Current rhythm appears to be sinus tachycardia on bedside monitor. Continues on Cardizem which is infusing at 5 mg/h, and heparin continues per protocol. Blood pressure normotensive. On today's evaluation of 05/12/2024, the patient is being seen for a follow-up. The patient was hospitalized for an acute COPD exacerbation. The patient is feeling better and the patient is currently off the BiPAP and she was placed on 3 L of oxygen by nasal cannula with a pulse ox of 94%. Less bronchospastic and wheezy compared to yesterday. No new labs from today. Viral screen has been negative. Remains on DuoNeb updrafts. Remains on IV Solu-Medrol 40 mg every 8 hours. Remains on Perforomist and Pulmicort updrafts twice a day. Still having some ongoing back pain due to compression fraction of the spine. Cardiac rhythm is back into sinus and the patient remains on anticoagulation with Eliquis 5 mg p.o. twice a day. Patient is also on Cardizem 30 mg p.o. 3 times daily. On 05/13/2024, the patient is being seen for a follow-up. Reviewed anxious. Continues to be bronchospastic and wheezy. She is currently on oxygen at 4 L/min nasal cannula with a pulse ox of 97%. Her blood gas from yesterday showed a pH of 7.37 with a pCO2 of 43 and pO2 of 84 and this was an FiO2 of 40%. Remains on DuoNeb updrafts. Remains a performance of Pulmicort nebulized twice a day and IV Solu-Medrol. Limited improvement compared to yesterday. Not ready for discharge at this point. Also being seen by cardiology regardingHer atrial fibrillation. The patient is currently in sinus mechanism. Echocardiogram is still pending. Meanwhile, the patient is maintained on Cardizem 30 mg p.o. 3 times daily and anticoagulation with Eliquis. On 05/14/2024, the patient is slightly improved compared to yesterday. Cough and congestion is improved and the patient breathing is less labored compared to yesterday. She remains on DuoNeb. She remains on IV Solu-Medrol. Anxiety level is improved as the patient is receiving Xanax 0.5 mg twice daily on a as needed basis. No other new complaints otherwise for now. She remains on oxygen and she is currently on 4 L nasal cannula. No new labs from today. No other significant events otherwise for now. Objective - Vital Signs Vital signs: Vital Signs Temp 97.7 F 05/14/24 07:15 Pulse 104 H 05/14/24 08:22 Resp 18 05/14/24 07:15 BP 130/78 05/14/24 07:15 Pulse Ox 94 L 05/14/24 07:54 FiO2 40 05/13/24 12:40 Intake & Output 05/13/24 05/14/24 05/14/24 18:59 06:59 18:59 Intake Total 600 240 Balance 600 240 Intake: Oral 600 240 Other: Voiding Method External Catheter Diaper External Catheter # Voids 3 - Exam GENERAL EXAM: Anxious, 68-year-old white female, stable without any significant shortness of breath on 3 L of oxygen nasal cannula. Lumbar brace on bedside table HEAD: Normocephalic and atraumatic EYES: Normal reaction of pupils, equal size. NOSE: Clear with pink turbinates. THROAT: No erythema or exudates. NECK: No masses, no JVD. CHEST: No chest wall deformity. LUNGS: Equal air entry with diffuse expiratory wheezing throughout. CVS: S1 and S2 normal with no audible murmur, regular rhythm. No extra heart sounds. ABDOMEN: No hepatosplenomegaly, active bowel sounds, no guarding or rigidity. SPINE: No scoliosis or deformity SKIN: No rashes CENTRAL NERVOUS SYSTEM: No focal deficits, tone is normal in all 4 extremities. EXTREMITIES: There is no peripheral edema, clubbing, or cyanosis. Peripheral pulses are intact. - Labs CBC & Chem 7: 05/10/24 23:27 05/10/24 23:27 Assessment and Plan Assessment: Acute COPD exacerbation with secondary shortness of breath and the patient is currently on BiPAP. Chest x-ray was reviewed and is consistent with COPD and chronic scarring changes. No airspace disease. The patient is currently off the BiPAP Acute on chronic hypoxemic respiratory failure, currently off the BiPAP on 4 L of oxygen by nasal cannula paroxysmal atrial fibrillation with RVR, back into sinus rhythm and the patient is currently on oral Cardizem and anticoagulation with Eliquis Hypertension Lower back pain, with history of wedge compression fracture of L2 vertebra, with a lumbar brace Anxiety/depression Former tobacco smoker Plan: Continues to improve slowly. The progress in her breathing is ongoing but limited. o be her Continue titrating oxygen flow to maintain saturation above 90%, currently on 4 L Chest x-ray reviewed, there is hyperinflation consistent with COPD. No acute cardiopulmonary process noted. Continue combination of DuoNebs budesonide and formoterol inhalations, IV Solu-Medrol Viral 4 Plex unremarkable for influenza, RSV, COVID Xanax for anxiety Oral Cardizem Anticoagulation with Eliquis Will likely need home O2 We will also continue to follow Time with Patient: Greater than 30
[2024-05-14] MEDS: IPRATROPIUM-ALBUTEROL 3 ML NEB INHALATION SCH (15:26)
[2024-05-15 09:03] LABS: Glucose,Whole Blood 177 mg/dL (70-110)
[2024-05-15 09:44] LABS: Basophils % (A) 0 %; Eosinophils % (A) 0 %; HCT 39.6 % (34.0-46.0); HGB 11.8 gm/dL (11.4-16.0); Hypochromasia Slight; Lymphocytes # (A) 0.3 k/uL (1.0-4.8); Lymphocytes % (A) 4 %; MCH 32.8 pg (25.0-35.0); MCHC 29.7 g/dL (31.0-37.0); MCV 110.3 fL (80.0-100.0); Macrocytosis Marked; Mean Platelet Volume 8.1; Monocytes # (A) 0.2 k/uL (0-1.0); Monocytes % (A) 3 %; Neutrophils # (A) 6.5 k/uL (1.3-7.7); Neutrophils % (A) 92 %; Platelet Count 439 k/uL (150-450); RDW 13.3 % (11.5-15.5); WBC 7.1 k/uL (3.8-10.6)
[2024-05-15 09:52] LABS: African American GFR (CKD) >90 (>60 ml/min/1.73 sqM); Anion Gap 7 mmol/L; Blood Urea Nitrogen 21 mg/dL (7-17); Calcium 8.7 mg/dL (8.4-10.2); Carbon Dioxide 34 mmol/L (22-30); Chloride 98 mmol/L (98-107); Glucose 169 mg/dL (74-99); Magnesium 1.8 mg/dL (1.6-2.3); Non-African American GFR(CKD) >90 (>60 ml/min/1.73 sqM); Potassium 4.2 mmol/L (3.5-5.1); Sodium 139 mmol/L (137-145)
[2024-05-15] MEDS: DILTIAZEM DRIP BOLUS FROM BAG 1 MG SOLN IV ONE (10:30)
[2024-05-15] MEDS: DILTIAZEM 125 MG in SODIUM CHLORIDE 0.9% 100 ML IV SCH (10:31)
[2024-05-15] MEDS: METOPROLOL TARTRATE 25 MG TAB PO SCH (13:34)
[2024-05-15] MEDS: DILTIAZEM ORAL 30 MG TAB PO SCH (17:24)
[2024-05-15] MEDS: methylPREDNISolone SOD SUCCI 40 MG/ML 1 ML VIAL IV SCH (17:24)
--- NOTE | 2024-05-15 19:00 | P.PN ---
Subjective Progress Note Date: 05/15/24 Patient is 68-year-old female brought in by EMS from her ECF with difficulty in breathing. On arrival, was found to be in some respiratory and placed on BiPAP. Pulmonary consult was placed for COPD exacerbation. While in the emergency department reportedly went into atrial fibrillation with rapid ventricular response, rate as high as 180s beats per minute. She was started on IV Cardizem. She was also systemically heparinized. Patient reportedly has history of COPD, home O2 dependence, former tobacco dependence, hypertension, wedge compression fracture of L2 with brace, anxiety/depression. Chest x-ray does not show any acute cardiopulmonary process. There is hyperinflation consistent with COPD. Viral screen negative for influenza, RSV, COVID. CBC: WBC count 7.2, hemoglobin 11.9, platelets 563. D-dimer 0.46. CMP unremarkable, electrolytes WDL, creatinine 0.42, glucose 101. D-dimer 0.46. Troponins less than 0.012. NT proBNP 593. Patient currently being evaluated the emergency department. She is in a state of respiratory distress, on BiPAP with settings 12/5 and FiO2 40%. SpO2 is reading 99%. Breathing in the mid 30s. Achieving tidal volumes around 300. She appears anxious, did receive a dose of Ativan 0.5 mg earlier. Her COPD is active she is actively wheezing. Per staff nurse, patient reportedly having hallucinations earlier. Interview is limited by respiratory distress. She does endorse a mostly nonproductive cough. Denies significant purulent sputum production. Denies fevers or chills. Denies chest pain, heart palpitations, lightheadedness, lower extremity edema. Denies history of atrial fibrillation. Current rhythm appears to be sinus tachycardia on bedside monitor. Continues on Cardizem which is infusing at 5 mg/h, and heparin continues per protocol. Blood pressure normotensive. On today's evaluation of 05/12/2024, the patient is being seen for a follow-up. The patient was hospitalized for an acute COPD exacerbation. The patient is feeling better and the patient is currently off the BiPAP and she was placed on 3 L of oxygen by nasal cannula with a pulse ox of 94%. Less bronchospastic and wheezy compared to yesterday. No new labs from today. Viral screen has been negative. Remains on DuoNeb updrafts. Remains on IV Solu-Medrol 40 mg every 8 hours. Remains on Perforomist and Pulmicort updrafts twice a day. Still having some ongoing back pain due to compression fraction of the spine. Cardiac rhythm is back into sinus and the patient remains on anticoagulation with Eliquis 5 mg p.o. twice a day. Patient is also on Cardizem 30 mg p.o. 3 times daily. On 05/13/2024, the patient is being seen for a follow-up. Reviewed anxious. Continues to be bronchospastic and wheezy. She is currently on oxygen at 4 L/min nasal cannula with a pulse ox of 97%. Her blood gas from yesterday showed a pH of 7.37 with a pCO2 of 43 and pO2 of 84 and this was an FiO2 of 40%. Remains on DuoNeb updrafts. Remains a performance of Pulmicort nebulized twice a day and IV Solu-Medrol. Limited improvement compared to yesterday. Not ready for discharge at this point. Also being seen by cardiology regardingHer atrial fibrillation. The patient is currently in sinus mechanism. Echocardiogram is still pending. Meanwhile, the patient is maintained on Cardizem 30 mg p.o. 3 times daily and anticoagulation with Eliquis. On 05/14/2024, the patient is slightly improved compared to yesterday. Cough and congestion is improved and the patient breathing is less labored compared to yesterday. She remains on DuoNeb. She remains on IV Solu-Medrol. Anxiety level is improved as the patient is receiving Xanax 0.5 mg twice daily on a as needed basis. No other new complaints otherwise for now. She remains on oxygen and she is currently on 4 L nasal cannula. No new labs from today. No other significant events otherwise for now. The patient is seen today May 15, 2024 in follow-up on the selective care unit. She is currently sitting up at the bedside. Awake and alert in no acute distress. Maintaining O2 saturations in the 90s on 4 L/min per nasal cannula. She is alternating with BiPAP 12/5 and 40% FiO2. She is continued on DuoNeb inhalations, Pulmicort inhalations, Solu-Medrol. Anticoagulated with Eliquis. White count 7.1. Hemoglobin 11.8. Platelets 439. Sodium 139. Potassium 4.2. Bicarb 34. BUN 21. Creatinine 0.47. Glucose 169. Objective - Vital Signs Vital signs: Vital Signs Temp 97.6 F 05/15/24 10:59 Pulse 80 05/15/24 18:39 Resp 18 05/15/24 16:00 BP 136/88 05/15/24 16:00 Pulse Ox 93 L 05/15/24 16:00 FiO2 40 05/13/24 12:40 Intake & Output 05/14/24 05/15/24 05/15/24 18:59 06:59 18:59 Intake Total 281.5 Output Total 0 Balance 281.5 Intake: Intake, IV Titration 41.5 Amount Diltiazem 125 mg In 41.5 Sodium Chloride 0.9% 100 ml @ 10 MG/HR 10 mls/hr IV .[id number] [facility] Rx#: [id number] Oral 240 Output: Gastric Drainage 0 Urine 0 Stool 0 Urine/Stool Mix 0 Emesis 0 Oral Regurgitation 0 Other 0 Other: Voiding Method Diaper Diaper Diaper External Catheter External Catheter External Catheter # Voids 2 1 0 # Bowel Movements 1 0 - Exam GENERAL EXAM: Alert, 68-year-old female, 4 L of oxygen nasal cannula. Lumbar brace on bedside table HEAD: Normocephalic and atraumatic EYES: Normal reaction of pupils, equal size. NOSE: Clear with pink turbinates. THROAT: No erythema or exudates. NECK: No masses, no JVD. CHEST: No chest wall deformity. LUNGS: Equal air entry with expiratory wheezing throughout. CVS: S1 and S2 normal with no audible murmur, regular rhythm. No extra heart sounds. ABDOMEN: No hepatosplenomegaly, active bowel sounds, no guarding or rigidity. SPINE: No scoliosis or deformity SKIN: No rashes CENTRAL NERVOUS SYSTEM: No focal deficits, tone is normal in all 4 extremities. EXTREMITIES: There is no peripheral edema, clubbing, or cyanosis. Peripheral pulses are intact. - Labs CBC & Chem 7: 05/15/24 09:16 05/15/24 09:16 Labs: Abnormal Lab Results - Last 24 Hours (Table) 05/15/24 05/15/24 05/15/24 Range/Units 09:01 09:16 09:16 RBC 3.60 L (3.80-5.40) m/uL MCV 110.3 H (80.0-100.0) fL MCHC 29.7 L (31.0-37.0) g/dL Lymphocytes # 0.3 L (1.0-4.8) k/uL Macrocytosis Marked A Carbon Dioxide 34 H (22-30) mmol/L BUN 21 H (7-17) mg/dL Creatinine 0.47 L (0.52-1.04) mg/dL Glucose 169 H (74-99) mg/dL POC Glucose (mg/dL) 177 H (70-110) mg/dL Assessment and Plan Assessment: Acute COPD exacerbation with secondary shortness of breath. Chest x-ray was reviewed and is consistent with COPD and chronic scarring changes. No airspace disease. Acute on chronic hypoxemic respiratory failure, currently off the BiPAP on 4 L of oxygen by nasal cannula Paroxysmal atrial fibrillation with RVR, back into sinus rhythm and the patient is currently on oral Cardizem and anticoagulation with Eliquis Hypertension Lower back pain, with history of wedge compression fracture of L2 vertebra, with a lumbar brace Anxiety/depression Former tobacco smoker Plan: The patient was seen and evaluated Labs and medications reviewed Currently on 4 L nasal cannula Continue bronchodilators, steroids Titrate down the FiO2 as tolerated Eliquis for anticoagulation Increase her activity as tolerated We will continue to follow I have personally seen and examined the patient, performed the documentation and the assessment and plan as written. Number of minutes spent on the visit: 10 Dictation was produced using [employer] dictation software. Please excuse any grammatical, word or spelling errors.
--- NOTE | 2024-05-15 21:04 | P.PN ---
Progress Note - Text Progress Note Date: 05/15/24 Chief Complaint: Short of breath Pleasant 68-year-old patient, follows with Dr. Joya Cramer. Patient recently had [facility]. For that she was admitted to [facility] for rehab. While at [facility] she was seen by orthopedic surgeon for her back pain. She was told no surgical intervention at this point. And medical management and follow-up outpatient. As the back was bothering her more she decided to come to the ER. Also short of breath and more wheezing. Found to be in atrial fibrillation with rapid ventricular rate. Put on a Cardizem drip. Patient did smoke in the past. By this morning patient reverted to sinus rhythm. May 12: Breathing better. Sinus rhythm. Back pain better. Spoke to high risk case manager Kerry. Patient to return to rehab. [facility]. PT OT consulted. Authorization requested. Discussed with patient May 13: Anxious. A bit more short of breath. IV Solu-Medrol increased by pulmonary. Also on DuoNeb. Nebulized Pulmicort. Eating fair. Told the patient sit up on recliner. Back pain controlled. Oral intake good MAY 14: Remains anxious. Will add Paxil 20 mg a day. Remains on IV Solu-Medrol 60 mg every 6. Patient is bit tearful about going home. Did reemphasize she will go back to rehab. Other medications to continue. Pain controlled. Eating 100%. Some tremors.-Fine. Cut back DuoNeb to every 6 hours. DC Perforomist. May 15: Started on Paxil yesterday. Breathing better. Solu-Medrol cut back to 40 mg every 8. Some cough present. Patient went into A-fib with rapid rate today. Then went back into sinus rhythm. Patient been put on Cardizem drip then oral Cardizem. Fine tremors are better today after cutting back frequency of DuoNeb and stopping Perforomist Active Medications Acetaminophen (Acetaminophen Tab 325 Mg Tab) 650 mg PO Q6HR PRN PRN Reason: Mild Pain or Fever > 100.5 Albuterol/Ipratropium (Ipratropium-Albuterol 3 Ml Neb) 3 ml INHALATION RT-Q2H PRN PRN Reason: Shortness Of Breath Or Wheezing Last Admin: 05/13/24 14:45 Dose: 3 ml Albuterol/Ipratropium (Ipratropium-Albuterol 3 Ml Neb) 3 ml INHALATION RT-QID [facility] Last Admin: 05/15/24 18:38 Dose: 3 ml Alprazolam (Alprazolam 0.5 Mg Tab) 0.5 mg PO BID PRN PRN Reason: Anxiety Last Admin: 05/15/24 20:11 Dose: 0.5 mg Apixaban (Apixaban 5 Mg Tab) 5 mg PO BID [facility]; Protocol Last Admin: 05/15/24 20:11 Dose: 5 mg Budesonide (Budesonide 1 Mg/2 Ml Nebu) 1 mg INHALATION RT-BID [facility] Last Admin: 05/15/24 18:39 Dose: 1 mg Cholecalciferol (Cholecalciferol 25 Mcg (1000 Iu) Tablet) 50 mcg PO DAILY [facility] Last Admin: 05/15/24 10:29 Dose: 50 mcg Diltiazem HCl (Diltiazem Oral 30 Mg Tab) 30 mg PO TID [facility] Last Admin: 05/15/24 20:11 Dose: 30 mg Diphenhydramine HCl (Diphenhydramine 25 Mg Cap) 25 mg PO Q6HR PRN PRN Reason: Itching Last Admin: 05/15/24 04:12 Dose: 25 mg Guaifenesin (Guaifenesin 600 Mg Tablet.Er) 600 mg PO Q12HR [facility] Last Admin: 05/15/24 20:11 Dose: 600 mg Lisinopril (Lisinopril 20 Mg Tab) 20 mg PO DAILY [facility] Last Admin: 05/15/24 10:30 Dose: 20 mg Methylprednisolone Sodium Succinate (Methylprednisolone Sod Succi 40 Mg/Ml 1 Ml Vial) 40 mg IV Q8H [facility] Last Admin: 05/15/24 17:24 Dose: 40 mg Metoprolol Tartrate (Metoprolol Tartrate 25 Mg Tab) 25 mg PO BID [facility] Last Admin: 05/15/24 20:13 Dose: 25 mg Naloxone HCl (Naloxone 0.4 Mg/Ml 1 Ml Vial) 0.2 mg IVP Q2M PRN PRN Reason: Opioid Reversal Ondansetron HCl (Ondansetron 4 Mg/2 Ml Vial) 4 mg IVP Q6HR PRN PRN Reason: Nausea And Vomiting Oxycodone HCl (Oxycodone Hcl 5 Mg Tab) 10 mg PO Q4HR [facility] Last Admin: 05/15/24 20:11 Dose: 10 mg Paroxetine HCl (Paroxetine 20 Mg Tab) 20 mg PO DAILY [facility] Last Admin: 05/15/24 10:30 Dose: 20 mg Polyethylene Glycol (Polyethylene Glycol 3350 17 Gm Powd.Pack) 17 gm PO DAILY [facility] Last Admin: 05/15/24 10:34 Dose: Not Given Senna/Docusate Sodium (Sennosides-Docusate Sodium 1 Each Tab) 2 each PO HS [facility] Last Admin: 05/15/24 20:11 Dose: 2 each Social history: Lives alone. Does use a walker. Smoked less than a pack a day for close to 25 years stopped about 25 years ago. Currently at rehab at [facility] Physical examination: VITAL SIGNS: 97.7, 75, 20, 141 x 84, 97% 4 L GENERAL: BMI 20.3, reclining bed, some short of breath. Anxious. EYES: Pupils equal. Conjunctiva karen l. HEENT: External appearance of nose and ears normal, oral cavity grossly normal. NECK: JVD not raised; masses not palpable. HEART: First and second heart sounds are normal; no edema. LUNGS: Respiratory rate increased, diminished breath sound prolonged expiration ABDOMEN: Soft, nontender, liver spleen not palpable, no masses palpable. PSYCH: [Alert and oriented x3; mood and affect anxious MUSCULOSKELETAL:No Clubbing/cyanosis;muscles-grossly intact Neuro: Fine tremors-improved INVESTIGATIONS, reviewed in the clinical context: May 15: White count 7.1 hemoglobin 11.8 platelets 439 BUN 21 creatinine 0.47 May 10, 2024: White count 7.2 hemoglobin 11.9 platelets 563 sodium 135 potassium 4.5 BUN 12 creatinine 0.42 proBNP 593 Troponin I is less than 0.012 Influenza type A, type B, RSV, SARS-CoV-2: Not detected EKG tracing personally reviewed by me-normal sinus rhythm. Nonspecific ST-T wave changes Chest x-ray film personally reviewed by me-hyperinflated. Possible chronic changes. Assessment plan: -Acute severe COPD exacerbation in a previous smoker: Some improvement . IV Solu-Medrol 40 mg Q8 nebulized Pulmicort. Cut back DuoNeb to every 6 and DC Perforomist because of tremors. -Paroxysmal atrial fibrillation rapid ventricular rate. Remains in sinus rhythm. Initially put on IV Cardizem drip. Now p.o. Cardizem 30 mg every 8 IV heparin. 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 This has been worked up recently by orthopedic physician at [facility]. Patient is due to follow-up outpatient. Patient has been told for not very surgical intervention. K-pad ordered. Oxycodone 10 mg Q4 scheduled-Home dose -Chronic gait dysfunction does use a walker at baseline -Essential hypertension Zestril -Anxiety, uncontrolled Dose of Xanax was increased. Started on Paxil.: [Celexa not continued] -Full code -Disposition: return to rehab at [facility] Continue current medication treatment plan. During episode of A-fib with rapid rate. Was put on Cardizem drip. Switch back to oral Cardizem. Past Medical History Past Medical History: COPD, Hypertension History of Any Multi-Drug Resistant Organisms: None Reported Past Surgical History: Section, Hernia Repair Past Psychological History: Anxiety Smoking Status: Former smoker Past Alcohol Use History: Daily Past Drug Use History: None Reported
[2024-05-16] MEDS: ACETAMINOPHEN TAB 325 MG TAB PO PRN (07:35)
[2024-05-16 07:45] VITALS: RESP 18; TEMP 97.9
--- NOTE | 2024-05-16 11:52 | P.DS ---
Providers Date of admission: 05/11/24 00:59 Expected date of discharge: 05/16/24 Attending physician: Fede Mcnally Consults: 05/11/24 00:55 Consult Physician Routine Consulting Provider: Briana Gomez Consult Reason/Comments: COPD exacerbation Do you want consulting provider notified?: Yes, Notify in am 05/15/24 09:16 Consult Physician Routine Consulting Provider: Randy Zarate Consult Reason/Comments: afib with RVR Do you want consulting provider notified?: Yes Primary care physician: Joya Cramer MD Hospital Course: Chief Complaint: Short of breath Pleasant 68-year-old patient, follows with Dr. Joya Cramer. Patient recently had [facility]. For that she was admitted to [facility] for rehab. While at [facility] she was seen by orthopedic surgeon for her back pain. She was told no surgical intervention at this point. And medical management and follow-up outpatient. As the back was bothering her more she decided to come to the ER. Also short of breath and more wheezing. Found to be in atrial fibrillation with rapid ventricular rate. Put on a Cardizem drip. Patient did smoke in the past. By this morning patient reverted to sinus rhythm. May 12: Breathing better. Sinus rhythm. Back pain better. Spoke to case managers Kerry. Patient to return to rehab. [facility]. PT OT consulted. Authorization requested. Discussed with patient May 13: Anxious. A bit more short of breath. IV Solu-Medrol increased by pulmonary. Also on DuoNeb. Nebulized Pulmicort. Eating fair. Told the patient sit up on recliner. Back pain controlled. Oral intake good MAY 14: Remains anxious. Will add Paxil 20 mg a day. Remains on IV Solu-Medrol 60 mg every 6. Patient is bit tearful about going home. Did reemphasize she will go back to rehab. Other medications to continue. Pain controlled. Eating 100%. Some tremors.-Fine. Cut back DuoNeb to every 6 hours. DC Perforomist. May 15: Started on Paxil yesterday. Breathing better. Solu-Medrol cut back to 40 mg every 8. Some cough present. Patient went into A-fib with rapid rate today. Then went back into sinus rhythm. Patient been put on Cardizem drip then oral Cardizem. Fine tremors are better today after cutting back frequency of DuoNeb and stopping Perforomist May 16: Anxious. Tearful. Wants to go to rehab tomorrow. Explained to her that she needs rehab. Discussed with Dr. Gomez. Cleared for discharge. To finish a short course of antibiotic. Home pain medication to continue. To follow-up with her orthopedic doctors scheduled as outpatient. Pulmicort. Other medications reviewed. Discussed with patient. And the nurse. Needs rehab sooner than later. Emphasized. Discussion and discharge planning more than 35 minutes Social history: Lives alone. Does use a walker. Smoked less than a pack a day for close to 25 years stopped about 25 years ago. Currently at rehab at [facility] Physical examination: VITAL SIGNS: 97.9, 88, 18, 133 x 88, 94% room air GENERAL: BMI 20.3, sitting edge of the bed, anxious EYES: Pupils equal. Conjunctiva karen l. HEENT: External appearance of nose and ears normal, oral cavity grossly normal. NECK: JVD not raised; masses not palpable. HEART: First and second heart sounds are normal; no edema. LUNGS: Respiratory rate increased, diminished breath sound ABDOMEN: Soft, nontender, liver spleen not palpable, no masses palpable. PSYCH: [Alert and oriented x3; mood and affect anxious MUSCULOSKELETAL:No Clubbing/cyanosis;muscles-grossly intact Neuro: Fine tremors-improved INVESTIGATIONS, reviewed in the clinical context: May 15: White count 7.1 hemoglobin 11.8 platelets 439 BUN 21 creatinine 0.47 May 10, 2024: White count 7.2 hemoglobin 11.9 platelets 563 sodium 135 potassium 4.5 BUN 12 creatinine 0.42 proBNP 593 Troponin I is less than 0.012 Influenza type A, type B, RSV, SARS-CoV-2: Not detected EKG tracing personally reviewed by me-normal sinus rhythm. Nonspecific ST-T wave changes Chest x-ray film personally reviewed by me-hyperinflated. Possible chronic changes. Assessment plan: -Acute severe COPD exacerbation in a previous smoker: Better air . IV Solu-Medrol 40 mg Q8 nebulized Pulmicort. Cut back DuoNeb to every 6 and DC Perforomist because of tremors. Discharged on prednisone taper -Paroxysmal atrial fibrillation rapid ventricular rate. Remains in sinus rhythm. Initially put on IV Cardizem drip. Received IV heparin. 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 This has been worked up recently by orthopedic physician at [facility]. Patient is due to follow-up outpatient. Patient has been told for not very surgical intervention. K-pad ordered. Oxycodone 10 mg Q4 scheduled-Home dose -Chronic gait dysfunction does use a walker at baseline -Essential hypertension Zestril -Anxiety, uncontrolled Dose of Xanax was increased. Started on Paxil.: [Celexa not continued] -Full code -Disposition: Rehab: [facility] Past Medical History Past Medical History: COPD, Hypertension History of Any Multi-Drug Resistant Organisms: None Reported Past Surgical History: Section, Hernia Repair Past Psychological History: Anxiety Smoking Status: Former smoker Past Alcohol Use History: Daily Past Drug Use History: None Reported Plan - Discharge Summary Discharge Rx Participant: No New Discharge Prescriptions: New Ipratropium-Albuterol Nebulize [Duoneb 0.5 mg-3 mg/3 ml Soln] 3 ml INHALATION TID each Diltiazem Cd [Cardizem CD] 180 mg PO DAILY cap ALPRAZolam [Xanax] 0.25 mg PO BID PRN 3 Days #6 tab PRN Reason: Anxiety oxyCODONE HCL [OxyIR] 10 mg PO Q4HR #18 tab Apixaban [Eliquis] 5 mg PO BID tab predniSONE 10 mg PO DAILY #30 tab Azithromycin [Zithromax] 500 mg PO DAILY #3 tab PARoxetine [Paxil] 20 mg PO DAILY tab Budesonide [Pulmicort] 0.5 mg INHALATION BID #1 ml Continue polyethylene glycoL 3350 [Miralax] 17 gm PO DAILY lisinopriL [Zestril] 20 mg PO DAILY Ipratropium-Albuterol Nebulize [Duoneb 0.5 mg-3 mg/3 ml Soln] 3 ml INHALATION RT-Q4H Cholecalciferol (Vitamin D3) [Vitamin D3 (50 Mcg = 2000 Iu)] 50 mcg PO DAILY Albuterol Sulfate [Albuterol Sulfate Hfa] 2 puff PO RT-Q6H PRN PRN Reason: Shortness Of Breath Sennosides/Docusate Sodium [Senna Plus 8.6-50 mg Tablet] 2 tab PO HS oxyCODONE HCL [oxyCODONE HCL (IR)] 10 mg PO Q4H #18 tab Calcium Carbonate [Tums] 1,000 mg PO Q6H PRN PRN Reason: GERD Acetaminophen [Tylenol] 650 mg PO Q6H PRN PRN Reason: Pain Discontinued Docusate Sodium 100 mg PO BID Citalopram Hydrobromide [CeleXA] 40 mg PO DAILY Meclizine [Antivert] 12.5 mg PO TID Meclizine HCl 50 mg PO Q8H PRN PRN Reason: DIZZINESS Discharge Medication List Acetaminophen [Tylenol] 650 mg PO Q6H PRN 05/11/24 [History] Albuterol Sulfate [Albuterol Sulfate Hfa] 2 puff PO RT-Q6H PRN 05/11/24 [History] Calcium Carbonate [Tums] 1,000 mg PO Q6H PRN 05/11/24 [History] Cholecalciferol (Vitamin D3) [Vitamin D3 (50 Mcg = 2000 Iu)] 50 mcg PO DAILY 05/11/24 [History] Ipratropium-Albuterol Nebulize [Duoneb 0.5 mg-3 mg/3 ml Soln] 3 ml INHALATION RT-Q4H 05/11/24 [History] Sennosides/Docusate Sodium [Senna Plus 8.6-50 mg Tablet] 2 tab PO HS 05/11/24 [History] lisinopriL [Zestril] 20 mg PO DAILY 05/11/24 [History] polyethylene glycoL 3350 [Miralax] 17 gm PO DAILY 05/11/24 [History] Apixaban [Eliquis] 5 mg PO BID tab 05/12/24 [Rx] Azithromycin [Zithromax] 500 mg PO DAILY #3 tab 05/12/24 [Rx] Ipratropium-Albuterol Nebulize [Duoneb 0.5 mg-3 mg/3 ml Soln] 3 ml INHALATION TID each 05/12/24 [Rx] oxyCODONE HCL [oxyCODONE HCL (IR)] 10 mg PO Q4H #18 tab 05/12/24 [Rx] predniSONE 10 mg PO DAILY #30 tab 05/12/24 [Rx] ALPRAZolam [Xanax] 0.25 mg PO BID PRN 3 Days #6 tab 05/16/24 [Rx] Budesonide [Pulmicort] 0.5 mg INHALATION BID #1 ml 05/16/24 [Rx] Diltiazem Cd [Cardizem CD] 180 mg PO DAILY cap 05/16/24 [Rx] PARoxetine [Paxil] 20 mg PO DAILY tab 05/16/24 [Rx] oxyCODONE HCL [OxyIR] 10 mg PO Q4HR #18 tab 05/16/24 [Rx] Follow up Appointment(s)/Referral(s): Ameena Gomez MD [STAFF PHYSICIAN] - 10 Days Joya Cramer MD [Primary Care Provider] - 1-2 days Nito Key MD [STAFF PHYSICIAN] - 3 Weeks
--- NOTE | 2024-05-16 12:00 | P.PN ---
Subjective HISTORY OF PRESENT ILLNESS: This is a 68-year-old female with no prepatient presented to the hospital due to difficulty in breathing. Vious cardiac history and does not follow with a inspector [employer]. She has a past medical history of COPD, hypertension, remote history of tobacco use and dependence.Patient states that she has also had a sore back and has been at subacute rehab for this. She is not on home oxygen and denies history of obstructive sleep apnea. She denies history of atrial fibrillation or irregular heartbeat. She does state that she was at [facility] few weeks ago and may have seen a inspector [employer] at that time. Patient has a nonproductive cough. Patient denies having chest pain, no fever or chills. Blood pressure 125/75, heart rate 92, pulse ox 98% on BiPAP. Patient has been started on Cardizem drip currently at 5 mg/h and heparin drip. Patient is seen today in the emergency center waiting for a bed on the cardiac stepdown unit. -EKG: #1 sinus rhythm 101 bpm, #2 atrial fibrillation 183 bpm, #3 sinus rhythm 112 bpm. -Chest x-ray: No acute process. COPD. Multilevel anterior wedge compression deformities of the thoracic spine. -Laboratory studies: WBC 7.2, hemoglobin 1.9, platelet count 563, D-dimer 0.46. BUN 0.42. Troponin negative x 1. proBNP 593. Cepheid viral panel not detected. -Home cardiac medications: Lisinopril 20 mg daily. 05/12 Patient is seen and examined in the emergency center waiting for a bed on the cardiac stepdown unit. Patient remains in sinus rhythm. Yesterday, patient was started on oral Cardizem, Eliquis. Blood pressure 129/85, heart rate 95, pulse ox 92% on 3 L nasal cannula. Patient does not have home oxygen. Echocardiogram ordered. 05/13/2024 Patient examined this morning at the bedside. Patient currently denies chest pain or pressure. She does report some shortness of breath. She also complains of a cough. She is maintaining sinus mechanism. Blood pressure stable. 2D echo remains pending. 05/14/2024 Patient examined this morning at the bedside. Patient currently denies chest pain or pressure. She denies shortness of breath. Telemetry reveals sinus mechanism. Echocardiogram completed revealing ejection fraction 60 to 65%, no obvious regional wall motion abnormalities, mild pulm hypertension, mild MR, mild to moderate TR 05/16/2024 Cardiology was reconsulted as patient went into A-fib with RVR yesterday. She was started on IV Cardizem. She converted to sinus mechanism and is maintaining sinus mechanism this morning the time of examination. PHYSICAL EXAM: VITAL SIGNS: Reviewed. GENERAL: Well-developed in no acute distress. NECK: Supple. No JVD or thyromegaly LUNGS: Respirations even and unlabored. Lungs diminished bilaterally HEART: Regular rate and rhythm. S1 and S2 heard. EXTREMITIES: Normal range of motion. No clubbing or cyanosis. Peripheral pulses intact. No lower extremity edema ASSESSMENT: New onset paroxysmal atrial fibrillation with RVR, currently in sinus rhythm COPD exacerbation Acute hypoxic respiratory failure on BiPAP initially Hypertension Back pain with compression deformity of L2 Remote history of tobacco use and dependence PLAN: Discontinue metoprolol Change oral Cardizem to Cardizem CD 180 mg daily Continue telemetry monitoring Patient is cleared for discharge from a cardiac perspective and may follow-up in the office with Dr. Sarai Key in 3 weeks. Nurse practitioner note has been reviewed by physician. Signing provider agrees with the documented findings, assessment, and plan of care documented by [employer] as a scribe. Objective - Vital Signs Vital signs: Vital Signs Temp 97.9 F 05/16/24 07:44 Pulse 84 05/16/24 11:33 Resp 18 05/16/24 08:00 BP 163/88 05/16/24 07:44 Pulse Ox 94 L 05/16/24 07:44 FiO2 40 05/13/24 12:40 Intake & Output 05/15/24 05/16/24 05/16/24 18:59 06:59 18:59 Intake Total 281.5 30 10 Output Total 0 300 Balance 281.5 -270 10 Weight 51.6 kg Intake: IV 30 10 Invasive Line 1 20 Invasive Line 2 10 10 Intake, IV Titration 41.5 Amount Diltiazem 125 mg In 41.5 Sodium Chloride 0.9% 100 ml @ 10 MG/HR 10 mls/hr IV .[id number] [facility]HEL[facility] Rx#: [id number] Oral 240 Output: Gastric Drainage 0 Urine 0 300 Stool 0 Urine/Stool Mix 0 Emesis 0 Oral Regurgitation 0 Other 0 Other: Voiding Method Diaper Diaper External Catheter External Catheter # Voids 0 1 # Bowel Movements 0 1 - Labs CBC & Chem 7: 05/15/24 09:16 05/15/24 09:16
[2024-05-16] MEDS: DILTIAZEM CD 180 MG CAP.ER.24H PO STA (12:45)
[2024-05-16 13:12] VITALS: BP 158/94; PULSE 82
--- NOTE | 2024-05-16 15:29 | P.PN ---
Subjective Progress Note Date: 05/16/24 Principal diagnosis: Acute hypoxic respiratory failure secondary to acute exacerbation of COPD Patient is 68-year-old female brought in by EMS from her ECF with difficulty in breathing. On arrival, was found to be in some respiratory and placed on BiPAP. Pulmonary consult was placed for COPD exacerbation. While in the emergency department reportedly went into atrial fibrillation with rapid ventricular response, rate as high as 180s beats per minute. She was started on IV Cardizem. She was also systemically heparinized. Patient reportedly has history of COPD, home O2 dependence, former tobacco dependence, hypertension, wedge compression fracture of L2 with brace, anxiety/depression. Chest x-ray does not show any acute cardiopulmonary process. There is hyperinflation consistent with COPD. Viral screen negative for influenza, RSV, COVID. CBC: WBC count 7.2, he moglobin 11.9, platelets 563. D-dimer 0.46. CMP unremarkable, electrolytes WDL, creatinine 0.42, glucose 101. D-dimer 0.46. Troponins less than 0.012. NT proBNP 593. Patient currently being evaluated the emergency department. She is in a state of respiratory distress, on BiPAP with settings 12/5 and FiO2 40%. SpO2 is reading 99%. Breathing in the mid 30s. Achieving tidal volumes around 300. She appears anxious, did receive a dose of Ativan 0.5 mg earlier. Her COPD is active she is actively wheezing. Per staff nurse, patient reportedly having hallucinations earlier. Interview is limited by respiratory distress. She does endorse a mostly nonproductive cough. Denies significant purulent sputum production. Denies fevers or chills. Denies chest pain, heart palpitations, lightheadedness, lower extremity edema. Denies history of atrial fibrillation. Current rhythm appears to be sinus tachycardia on bedside monitor. Continues on Cardizem which is infusing at 5 mg/h, and heparin continues per protocol. Blood pressure normotensive. On today's evaluation of 05/12/2024, the patient is being seen for a follow-up. The patient was hospitalized for an acute COPD exacerbation. The patient is feeling better and the patient is currently off the BiPAP and she was placed on 3 L of oxygen by nasal cannula with a pulse ox of 94%. Less bronchospastic and wheezy compared to yesterday. No new labs from today. Viral screen has been negative. Remains on DuoNeb updrafts. Remains on IV Solu-Medrol 40 mg every 8 hours. Remains on Perforomist and Pulmicort updrafts twice a day. Still having some ongoing back pain due to compression fraction of the spine. Cardiac rhythm is back into sinus and the patient remains on anticoagulation with Eliquis 5 mg p.o. twice a day. Patient is also on Cardizem 30 mg p.o. 3 times daily. On 05/13/2024, the patient is being seen for a follow-up. Reviewed anxious. Continues to be bronchospastic and wheezy. She is currently on oxygen at 4 L/min nasal cannula with a pulse ox of 97%. Her blood gas from yesterday showed a pH of 7.37 with a pCO2 of 43 and pO2 of 84 and this was an FiO2 of 40%. Remains on DuoNeb updrafts. Remains a performance of Pulmicort nebulized twice a day and IV Solu-Medrol. Limited improvement compared to yesterday. Not ready for discharge at this point. Also being seen by cardiology regardingHer atrial fibrillation. The patient is currently in sinus mechanism. Echocardiogram is still pending. Meanwhile, the patient is maintained on Cardizem 30 mg p.o. 3 times daily and anticoagulation with Eliquis. On 05/14/2024, the patient is slightly improved compared to yesterday. Cough and congestion is improved and the patient breathing is less labored compared to yesterday. She remains on DuoNeb. She remains on IV Solu-Medrol. Anxiety level is improved as the patient is receiving Xanax 0.5 mg twice daily on a as needed basis. No other new complaints otherwise for now. She remains on oxygen and she is currently on 4 L nasal cannula. No new labs from today. No other significant events otherwise for now. The patient is seen today May 15, 2024 in follow-up on the selective care unit. She is currently sitting up at the bedside. Awake and alert in no acute distress. Maintaining O2 saturations in the 90s on 4 L/min per nasal cannula. She is alternating with BiPAP 12/5 and 40% FiO2. She is continued on DuoNeb inhalations, Pulmicort inhalations, Solu-Medrol. Anticoagulated with Eliquis. White count 7.1. Hemoglobin 11.8. Platelets 439. Sodium 139. Potassium 4.2. Bicarb 34. BUN 21. Creatinine 0.47. Glucose 169. Patient was seen today on 05/16/2024, patient is doing much better, breathing a lot easier, less cough less wheezing less shortness of breath. Remains on 2 L nasal cannula O2 sats of 94%, patient should be considered for discharge planning today. Objective - Vital Signs Vital signs: Vital Signs Temp 97.9 F 05/16/24 07:44 Pulse 82 05/16/24 12:00 Resp 18 05/16/24 12:00 BP 158/94 05/16/24 12:00 Pulse Ox 94 L 05/16/24 12:00 FiO2 40 05/13/24 12:40 Intake & Output 05/15/24 05/16/24 05/16/24 18:59 06:59 18:59 Intake Total 281.5 30 10 Output Total 0 300 Balance 281.5 -270 10 Weight 51.6 kg Intake: IV 30 10 Invasive Line 1 20 Invasive Line 2 10 10 Intake, IV Titration 41.5 Amount Diltiazem 125 mg In 41.5 Sodium Chloride 0.9% 100 ml @ 10 MG/HR 10 mls/hr IV .[id number] [facility] Rx#: [id number] Oral 240 Output: Gastric Drainage 0 Urine 0 300 Stool 0 Urine/Stool Mix 0 Emesis 0 Oral Regurgitation 0 Other 0 Other: Voiding Method Diaper Diaper External Catheter External Catheter # Voids 0 1 # Bowel Movements 0 1 - Exam GENERAL EXAM: Alert, 68-year-old female, 4 L of oxygen nasal cannula. Lumbar brace on bedside table HEAD: Normocephalic and atraumatic EYES: Normal reaction of pupils, equal size. NOSE: Clear with pink turbinates. THROAT: No erythema or exudates. NECK: No masses, no JVD. CHEST: No chest wall deformity. LUNGS: Diminished breath sound bilaterally minimal wheeze on forced expiratory maneuver only CVS: S1 and S2 normal with no audible murmur, regular rhythm. No extra heart sounds. ABDOMEN: No hepatosplenomegaly, active bowel sounds, no guarding or rigidity. SKIN: No rashes CENTRAL NERVOUS SYSTEM: No focal deficits, tone is normal in all 4 extremities. EXTREMITIES: There is no peripheral edema, clubbing, or cyanosis. Peripheral pulses are intact. - Labs CBC & Chem 7: 03/17/25 09:16 05/15/24 09:16 Assessment and Plan Assessment: Impression: Acute COPD exacerbation with secondary shortness of breath. Acute on chronic hypoxemic respiratory failure, secondary to above Paroxysmal atrial fibrillation with RVR, back into sinus rhythm and the patient is currently on oral Cardizem and anticoagulation with Eliquis Hypertension Lower back pain, with history of wedge compression fracture of L2 vertebra, with a lumbar brace Anxiety/depression Former tobacco smoker Recommendation: Patient is doing well today, I believe the patient could be considered for discharge home patient to continue oxygen at home, Continue bronchodilators at home, Continue Eliquis Continue cardiac meds for A-fib/RVR. Could be seen on outpatient basis for follow-up Time with Patient: Less than 30
[2024-05-16] MEDS ORDERED: DILTIAZEM ORAL 30 MG TAB PO SCH (16:00)
[2024-05-17] MEDS ORDERED: DILTIAZEM CD 180 MG CAP.ER.24H PO SCH (09:00)
--- NOTE | 2024-05-18 09:02 | CDI ---
Documentation Clarification Form Date: 05/18/2024 08:46:19 AM From: Elida Roberts Admit Date: 05/11/2024 12:59:00 AM Patient Name: Kaylee May Visit Number: [id number] Discharge Date: 05/16/2024 01:45:00 PM ATTENTION: The Clinical Documentation Specialists (CDI) and [facility] Coding Staff appreciate your assistance in clarifying documentation. Please respond to the clarification below the line at the bottom and electronically sign. The CDI & [facility] Coding staff will review the response and follow-up if needed. Please note: Queries are made part of the Legal Health Record. If you have any questions, please contact the author of this message via ITS. Dr. Fede Mcnally Your patient has acute on chronic hypoxic respiratory failure on bipap per pulmonary consultation and PN's 05/11 - . Based on this information and the findings below, is there an additional diagnosis that is clinically appropriate for this patient? History/Risk Factors: Tobacco use: personal history Home oxygen: Patient on home O2 Clinical Indicators: Vital signs: 98.5 F, 102 bpm, 18-22 respirations, 114/71, 94% 4 L then placed on Bipap 98% on Bipap Pulse oximetry: Lung/Breathing assessment: Labored Accessory muscles used. Treatment: O2 4 NC, Bipap Combination of DuoNebs, budesonide and formoterol inhalations IV solumedrol Continuous Pulse ox O2/Vent/BiPap O2 and bipap Is there an additional diagnosis that is clinically appropriate for this patient? [ + ] Acute Hypoxic Respiratory Failure [ ] Acute Hypercapnic Respiratory Failure [ ] Acute on Chronic Respiratory Failure [ ] Chronic Respiratory Failure [ ] Acute Respiratory Distress [ ] Acute Respiratory Insufficiency [ ] No additional diagnosis/not clinically significant [ ] Other Diagnosis, please specify [ ] Unable to determine MTDD
== END 2024-05-16 13:45 | DRG 189 ==
LOC: EC 21:45 → 6NMEDSUR 05-11 00:58 → OBSVTOIN 05-11 00:59 → 3SCARD 05-11 01:50 → 4SSUR 05-12 14:22 → 3SCARD 05-15 09:39
PROVIDERS: ADMIT Hospitalist; ATTEND Hospitalist
PROC: 5A09357 Assistance with Respiratory Ventilation, Less than 24 Consecutive Hours, Continuous Positive Airway Pressure (ICD-10-PCS; principal; 2024-05-11)
DX: J96.21 Acute and chronic respiratory failure with hypoxia (principal); S32.020A Wedge compression fracture of second lumbar vertebra, initial encounter for closed fracture; Z99.81 Dependence on supplemental oxygen; J44.1 Chronic obstructive pulmonary disease with (acute) exacerbation; I10 Essential (primary) hypertension; F32.A Depression, unspecified; I48.0 Paroxysmal atrial fibrillation; G89.29 Other chronic pain; R26.9 Unspecified abnormalities of gait and mobility; M19.91 Primary osteoarthritis, unspecified site; R25.1 Tremor, unspecified; F41.9 Anxiety disorder, unspecified; Z79.899 Other long term (current) drug therapy; Z87.891 Personal history of nicotine dependence; Z60.2 Problems related to living alone; Z20.822 Contact with and (suspected) exposure to COVID-19
CPT/HCPCS: 36415; 36600; 71046; 80048; 80053; 82805; 83735; 83880; 84484; 85025; 85379; 85610; 85730; 87636; 93005; 93306; 94640; 94660; 94760; 96361; 96365; 96366; 96367; 96368; 96375; 96376; 99291